=== PATIENT | female | born 1935 | race African-American/Black ===

== ENCOUNTER 2017-06-20 12:25 | Inpatient (IN) | payer MEDICARE, OTHER ==
[2017-06-20 13:10] LABS: Mean Corpuscular HGB CONC 30.6 g/dL (32.0-36.0); Mean Corpuscular Hemoglobin 25.7 pg (27.0-31.0); Mean Corpuscular Volume 83.9 fl (81.0-99.0); Mean Platelet Volume 8.8 fL (7.4-10.4); Platelet Count 203 thou/uL (130-400); RBC Distribution Width 19.7 % (11.5-14.5); Red Blood Cell (RBC) Count 3.91 mill/uL (4.20-5.40); White Blood Cell (WBC) Count 3.8 thou/uL (4.8-10.8)
[2017-06-20 13:31] LABS: Anisocytosis SLIGHT = 6-15 cells (100X) (0-5/hpf); Band 1 % (5-11); Hypochromia SLIGHT = 6-15 cells (100X) (0-5/hpf); Lymphocytes 26 % (21-51); MDiff Complete? YES; Monocytes 11 % (0-10); Neutrophil 62 % (42-75); Ovalocytes SLIGHT = 2-5 cells (100X) (0-1/hpf); PLT Morphology Comment Appears Adequate
[2017-06-20 13:32] LABS: ALT (SGPT) 8 U/L (8-55); AST (SGOT) 18 U/L (5-34); Albumin 4.1 g/dL (3.4-4.8); Alkaline Phosphatase 90 U/L (40-150); Anion Gap 14 mmol/L (10-20); BUN (Urea Nitrogen) 44 mg/dL (9.8-20.1); CK (CPK) 71 U/L (29-168); Calc. Creatinine Clearance 0 mL/min (70-130); Calcium 9.3 mg/dL (7.8-10.44); Carbon Dioxide 34 mmol/L (23-31); Chloride 98 mmol/L (98-107); Estimated GFR-MDRD 7; Globulin 3.4 g/dL (2.4-3.5); Glucose 101 mg/dL (83-110); Potassium 4.2 mmol/L (3.5-5.1); Protein, Total 7.5 g/dL (6.0-8.3); Sodium 142 mmol/L (136-145)
[2017-06-20 13:40] LABS: CKMB 0.8 ng/mL (0-6.6); Troponin I 0.092 ng/mL (< 0.028)
--- NOTE | 2017-06-20 13:54 | RAD ---
SINGLE VIEW OF THE CHEST: COMPARISON: 09/10/16. HISTORY: Chest pain. FINDINGS: A single view of the chest shows a cardiomediastinal silhouette which his upper limits of normal in s ize. There are small bilateral pleural effusions, left greater than right. An infiltrate may also b e present in the left lower lobe. Degenerative changes are seen in the spine. IMPRESSION: 1. Bilateral pleural effusions. 2. Left lower lobe infiltrate. POS: [facility]
[2017-06-20] MEDS ORDERED: Nitroglycerin 0.4 MG TAB (25 Tab Bottle) ONE (15:26)
[2017-06-20] MEDS ORDERED: Piperacillin/Tazobactam 4.5 GM in Sodium Chloride 0.9% 100 ML IVPB ONE (15:45)
[2017-06-20 15:55] LABS: Troponin I 0.081 ng/mL (< 0.028)
[2017-06-20] MEDS ORDERED: Acetaminophen 325 MG TAB PO PRN (17:08)
[2017-06-20] MEDS ORDERED: Senokot 8.6 MG TAB PO PRN (17:08)
[2017-06-20] MEDS ORDERED: Guaifenesin DM 100-10/5 ML UDCUP PO PRN (17:08)
[2017-06-20] MEDS ORDERED: cefTRIAXone\\ROCEPHIN 1 GM in Sodium Chloride 0.9% 100 ML IVPB SCH (17:15)
[2017-06-20] MEDS ORDERED: Dextrose 5% in Water 1,000 ML IV PRN (17:24)
[2017-06-20] MEDS ORDERED: HumaLOG 300 UNITS/3 ML VIAL SC PRN (17:24)
[2017-06-20] MEDS ORDERED: Dextrose 50% Abboject 50 ML SYRINGE SLOW IVP PRN (17:24)
[2017-06-20] MEDS ORDERED: Azithromycin 500 MG in Sodium Chloride 0.9% 250 ML 250 ML IVPB SCH (18:00)
--- NOTE | 2017-06-20 18:20 | CT ---
CT OF CHEST NONCONTRAST: Clinical history: Difficulty breathing, Chest pain. Clinical concern for pneumonia. Comparison: 09-10-16, CT of chest. FINDINGS: There are large bilateral pleural effusions, progressed in volume from prior exam. Adjacent consolida tion is seen bilaterally which may be on the basis of compressive atelectasis or/or adjacent areas of pneumonia. An area of reticular nodular density at the anterior left upper lobe, pleural based, is p resent, nonspecific. This could relate to an area of scar. Finding was present on a 08-27-11 CT exam. Diffuse vascular disease is present. There is extensive vascular disease re-demonstrated with mild an eurysmal dilatation of the aortic arch, grossly stable at approximately 4.5 cm. Regional soft tissues are limited in assessment without the presence of IV contrast. There is mild pericardial fluid, claudia osteal degenerative changes are present. IMPRESSION: 1. Large bilateral pleural effusions with adjacent consolidation which may related to atelectasis and /or pneumonia. 2. Extensive vascular disease and aneurysmal dilatation of the aortic arch re-demonstrated. POS: [facility]
--- NOTE | 2017-06-20 18:24 | HP ---
REASON FOR ADMISSION: Possible left lung pneumonia versus effusion. HISTORY OF PRESENTING ILLNESS: The patient gives history of having left-sided chest pain, which started around 8:30 in the morning. This was associated with shortness of breath. The chest pain was radiating to the back. This was 4-5/ 10 in intensity. The chest pain was off and on, each episode lasting 5 minutes or so. The patient states she has cough with expectoration of white sputum. No fever as such. She has had a flu shot. Her last dialysis was on Wednesday. Here in the ER, she has had a chest x-ray done, which is suspicious for possible left lower lobe pneumonia. PAST MEDICAL AND SURGICAL HISTORY: History of end-stage renal disease, on hemodialysis Wednesday, Wednesday and Wednesday; history of paroxysmal SVT; diabetes mellitus type 2; hypertension; dialysis access placement in the left upper extremity; hysterectomy; gout; dyslipidemia; prior history of PE; history of CML ; history of thoracic aneurysm; GERD and prior history of bone marrow biopsy. CURRENT MEDICATIONS: The patient is on allopurinol 300 mg every 2 days; vitamin D3 2000 units p.o. daily; Sensipar 30 mg p.o. on Wednesday, Wednesday and Wednesday; clonidine 0.1 mg p.o. twice daily; Sprycel 20 mg p.o. daily; ferric citrate 210 mg p.o. daily; glimepiride 2 mg p.o. daily; hydralazine 25 mg p.o. 3 times daily; Imdur extended release 60 mg p.o. q.a.m.; losartan 50 mg p.o. at bedtime; Megace twice daily; Toprol-XL 25 mg p.o. twice daily; Remeron 50 mg p.o. at bedtime; sevelamer 800 mg p.o. three times daily; simvastatin 40 mg p.o. at bedtime and Travatan eyedrops q.p.m. ALLERGIES: TRAMADOL, CODEINE, ASPIRIN and MORPHINE. PERSONAL HISTORY: Does not abuse alcohol or drugs. No history of smoking. She is independent with the activities of daily living. Does not abuse any assistive devices. FAMILY HISTORY: Mom at the age of 87 years from old age. Father at the age of 67 years when he got burnt accidentally. One sister is on hemodialysis as well. CODE STATUS: DNR. Power of bootmaker hand is her daughter, Ms. Vick. REVIEW OF SYSTEMS: The following complete review of systems was negative, unless otherwise mentioned in the HPI or below: Constitutional: Weight loss or gain, ability to conduct usual activities. Skin: Rash, itching. Eyes: Double vision, pain. ENT/Mouth: Nose bleeding, neck stiffness, pain, tenderness. Cardiovascular: Palpitations, dyspnea on exertion, orthopnea. Respiratory: Shortness of breath, wheezing, cough, hemoptysis, fever or night sweats. Gastrointestinal: Poor appetite, abdominal pain, heartburn, nausea, vomiting, constipation, or diarrhea. Genitourinary: Urgency, frequency, dysuria, nocturia. Musculoskeletal: Pain, swelling. Neurologic/Psychiatric: Anxiety, depression. Allergy/Immunologic: Skin rash, bleeding tendency. PHYSICAL EXAMINATION: GENERAL: The patient is an 81-year-old female who is currently not in any acute distress. VITAL SIGNS: Blood pressure 156/70, pulse 88 per minute, respiratory rate 20 per minute, temperature 98.2 degrees Fahrenheit and saturating 96% on room air. NECK: Supple. No elevated JVD. HEENT: Eyes: Extraocular muscles intact. Pupils are reacting to light. Oral cavity mucous membranes are moist. No exudates or congestion. CARDIOVASCULAR SYSTEM: S1 and S2 heard. Regular rhythm. RESPIRATORY SYSTEM: Air entry 1+ bilateral. There is decreased air entry in the left infrascapular area. ABDOMEN: Soft. Bowel sounds heard. No tenderness, rigidity or guarding. EXTREMITIES: No peripheral edema or calf tenderness. VASCULAR SYSTEM: Peripheral pulses 1+ bilateral. No ischemic ulcerations or gangrene. CENTRAL NERVOUS SYSTEM: No gross focal deficits seen. The patient is alert, awake and oriented well. PSYCHIATRIC SYSTEM: The patient's mood is euthymic. No hallucinations or delusions. LABORATORY AND X-RAY FINDINGS: White count of 3.8, hemoglobin and hematocrit 10 and 32, platelet count 203, MCV is 83 with 62% neutrophils. Electrolytes are stable. Serum bicarbonate 34, BUN 44, creatinine 7.1 and glucose 101. Liver enzymes are within normal limits. Lactic acid is 1.2, troponin I is 0.09 , CK-MB 0.8 and albumin is 4.1. Chest x-ray done shows bilateral pleural effusions. There was a suspicion for left lower lobe infiltrate. EKG done shows sinus rhythm at 89 beats per minute. There are questionable Q-waves seen in V1 and V2 and inferior wall leads. CLINICAL IMPRESSION AND PLAN: The patient will be admitted to telemetry for suspected left lower lobe infiltrate versus effusion. We will place her on Zithromax and ceftriaxone for now and I have consulted Dr. Elizabeth as well. The patient will have increased fluid removal with hemodialysis tomorrow. We will continue her allopurinol, Sensipar, Amaryl, hydralazine, Imdur, Cozaar, Toprol- XL, Remeron and Zocor as before. A CT chest without contrast will be obtained to better delineate the left lower lobe to see if this is really an infiltrate or increased effusion. The patient has had left-sided effusion from before. Code status was discussed with patient and she is a DNR. This was confirmed with her daughter, Ms. Vick as well. SARAH
[2017-06-20 20:28] VITALS: BMI 25.1
[2017-06-20] MEDS: hydrALAZINE 25 MG TAB PO SCH (20:38)
[2017-06-20] MEDS: Megestrol Acetate 40 MG TAB PO SCH (20:38)
[2017-06-20] MEDS: Simvastatin 40 MG TAB PO SCH (20:39)
[2017-06-20] MEDS: Mirtazapine 15 MG TAB PO SCH (20:39)
[2017-06-20] MEDS: Losartan 25 MG TAB PO SCH (20:39)
[2017-06-20] MEDS: Famotidine 20 MG TAB PO SCH (20:39)
[2017-06-20] MEDS: Latanoprost 0.005% Ophth Soln 2.5 ml Bottle EA EYE SCH (20:40)
[2017-06-20] MEDS: Cefepime 1 GM, Admixture Fee 1 EACH in Sterile Water 10 ML SLOW IVP SCH (21:25)
[2017-06-20] MEDS: cloNIDine 0.1 MG TAB PO SCH (22:05)
--- NOTE | 2017-06-20 22:49 | CON ---
DATE OF CONSULTATION: 06/20/2017 HISTORY OF PRESENT ILLNESS: Ms. Contreras is an 81-year-old black female with ESRD and presented with mil d shortness of breath. She was also complaining of left-sided chest pain. Chest x-ray was done in [facility] ER which showed ? of a possible left lower lobe pneumonia. Of interest, this patient denies any f ever or any overt productive cough. We are now being consulted for her maintenance hemodialysis. Of interest, this patient did receive her regular dialysis last Wednesday. REVIEW OF SYSTEMS: Positive for left-sided chest pain, no nausea, no vomiting. Positive for dry cou gh, positive for mild shortness of breath. No dysuria, no frequency, no abdominal pain, no syncopal episode, no headache, no diplopia, no gross hematuria, no dysuria, no urinary frequency. No hematoch ezia, no melena, no hematemesis, no nausea, and no vomiting. MEDICATIONS: Allopurinol 300 mg every other day, vitamin D3 of 2000 international units daily, Sensi par 30 mg Wednesday, Wednesday, Wednesday; clonidine 0.1 mg b.i.d., Sprycel 20 mg daily, Ferric citrate 210 mg daily, glimepiride 2 mg daily, hydralazine 25 mg p.o. t.i.d., Imdur 60 mg q.a.m., Losartan 50 mg at bedtime, Megace twice a day, Toprol-XL 25 mg twice a day, Remeron 50 mg at bedtime, sevelamer 800 mg t.i.d. with meals, simvastatin 40 mg at bedtime, Travatan eye drop as directed. PAST MEDICAL HISTORY: 1. Chronic myelogenous leukemia. 2. ESRD from presumed hypertensive nephropathy. 3. Hyperlipidemia. 4. Longstanding hypertension. 5. Status post pulmonary embolism. 6. Type 2 diabetes mellitus. 7. History of aortic aneurysm - patient declines any intervention. 8. Gastroesophageal reflux disease. PAST SURGICAL HISTORY: 1. Status post AV fistula placement. 2. Status post cuffed dialysis catheter placement. 3. Status post abdominal hysterectomy with salpingo-oophorectomy. 4. Status post bone marrow biopsy. 5. Status post colonoscopy. SOCIAL HISTORY: Patient lives alone, , retired from [employer], several children. No history of smoking. No alcohol intake. No IV drug abuse. Status post multiple blood transfusions. FAMILY HISTORY: Positive family history of ESRD. ALLERGIES: CODEINE, MORPHINE. TRAUMA: None. IMMUNIZATIONS: Up to date. HOSPITALIZATIONS: Please see past medical history. PHYSICAL EXAMINATION: VITAL SIGNS: Blood pressure is noted at 198/88, heart rate 83, respiratory rate 20, temperature 97.5 , pulse ox 93%. GENERAL: Awake, alert, comfortable, not in distress. SKIN: Adequate turgor. HEENT: Pinkish conjunctivae, anicteric sclerae. NECK: No neck mass, no carotid bruits, no JVD. CHEST: No deformities. LUNGS: Clear breath sounds. HEART: Normal sinus rhythm. No murmur, no gallops, or rubs. ABDOMEN: Globular, soft, nontender. No masses. EXTREMITIES: No edema, no deformities. LABORATORY DATA: On 06/20/2017, chest x-ray shows bilateral pleural effusions with left lower lobe i nfiltrate. CT scan of the chest on 06/20/2017 shows large bilateral pleural effusions with a conside ration, which may be related to atelectasis and/or pneumonia. ASSESSMENT AND PLAN: 1. Shortness of breath - multifactorial etiology. This could simply be a simple volume overload. S he does have bilateral pleural effusions. My plan is to schedule her for dialysis in the a.m. - ther e is no indication for any emergent dialysis tonight with this patient. 2. ? of pneumonia - clinically, the patient does not present someone with pneumonia. She denies any productive cough and/or any fever or chills. 3. Hypertension. We will continue current blood pressure meds. I reviewed the last KT/V with this patient and she is adequately dialyzed with the current dialysis regimen. We will continue her , Wednesday, and Wednesday dialysis.
[2017-06-21 00:08] LABS: Troponin I 0.089 ng/mL (< 0.028)
[2017-06-21 06:10] LABS: Anion Gap 15 mmol/L (10-20); BUN (Urea Nitrogen) 50 mg/dL (9.8-20.1); Calc. Creatinine Clearance 5 mL/min (70-130); Calcium 8.8 mg/dL (7.8-10.44); Carbon Dioxide 29 mmol/L (23-31); Chloride 100 mmol/L (98-107); Estimated GFR-MDRD 6; Glucose 98 mg/dL (83-110); Potassium 4.3 mmol/L (3.5-5.1); Sodium 140 mmol/L (136-145)
[2017-06-21 06:48] LABS: Band 1 % (5-11); Eosinophils 4 % (0-10); Hemoglobin 8.9 g/dL (12.0-16.0); Lymphocytes 23 % (21-51); MDiff Complete? YES; Mean Corpuscular HGB CONC 31.1 g/dL (32.0-36.0); Mean Corpuscular Hemoglobin 26.2 pg (27.0-31.0); Mean Platelet Volume 8.4 fL (7.4-10.4); Monocytes 8 % (0-10); Neutrophil 64 % (42-75); Platelet Count 176 thou/uL (130-400); RBC Distribution Width 19.6 % (11.5-14.5); Red Blood Cell (RBC) Count 3.39 mill/uL (4.20-5.40); White Blood Cell (WBC) Count 4.1 thou/uL (4.8-10.8)
--- NOTE | 2017-06-21 08:42 | PRG ---
DATE OF SERVICE: 06/21/2017 RENAL MEDICINE SUBJECTIVE: Ms. Contreras is an 81-year-old black female who was admitted for shortness of breath. She w as found to have bilateral pleural effusion. ? of pneumonia has been entertained, but clinically she does not present as pneumonia. We are being consulted for her maintenance hemodialysis. The patien quinton is currently in dialysis. I am at the bedside supervising her dialysis. PHYSICAL EXAMINATION: VITAL SIGNS: Blood pressure 159/60, heart rate 92, respiratory rate 18, pulse ox 93%. GENERAL: Awake, alert, supine, comfortable. SKIN: Adequate turgor. HEENT: Slightly pale conjunctivae, anicteric sclerae. NECK: No neck mass, no carotid bruits. No JVD. CHEST: No deformities. LUNGS: Decreased breath sounds. No wheezing. HEART: Normal sinus rhythm. No murmurs, no gallops, no rubs. ABDOMEN: Globular, soft, nontender, no masses. EXTREMITIES: No edema, no deformities. MEDICATIONS: Medications of 06/21/2017 was reviewed. LABORATORY DATA: Laboratories of 06/21/2017; white count 4.1, hemoglobin 8.9, sodium 140, potassium 4.3, chloride 100, carbon dioxide 29, BUN 50, creatinine 7.95, glucose 98, calcium 8.8, troponin I 0. 089. ASSESSMENT AND PLAN: 1. Shortness of breath, multifactorial etiology. This could be from mild volume overload. She does have chronic pleural effusion. We were maxing out fluid removal with dialysis. She could also have an underlying pneumonia. Empiric IV antibiotics have been started with this patient. 2. End-stage renal disease, stable. Continuing Wednesday, Wednesday, and Wednesday. Attempt to remove 2. 5 liters of fluid as tolerated. 3. Anemia. Start Epogen 7500 units subcutaneously every week. 4. Recheck basic metabolic panel and CBC in a.m.
[2017-06-21] MEDS ORDERED: (Ferric Citrate [Auryxia] 210 MG) PO SCH (09:00)
[2017-06-21] MEDS ORDERED: Cefepime 1 GM in Sodium Chloride 0.9% 100 ML IVPB SCH (09:00)
[2017-06-21] MEDS: hydrALAZINE 25 MG TAB PO SCH (10:06)
[2017-06-21] MEDS: Sevelamer Carbonate 800 MG TAB PO SCH ×3 (10:06→17:31)
--- NOTE | 2017-06-21 12:02 | PDOC.PN ---
- Subjective Encounter Start Date: 06/21/17 Encounter Start Time: 10:00 Subjective: is getting HD now, no sob -: no fever - Objective MAR Reviewed: Yes Vital Signs & Weight: Vital Signs (12 hours) Temp Pulse Resp BP Pulse Ox 06/21/17 10:06 92 06/21/17 07:55 92 18 159/60 H 06/21/17 03:10 98.3 F 81 16 182/73 H 93 L Weight Weight 137 lb 14.4 oz I&O: 06/20/17 06/21/17 06/22/17 06:59 06:59 06:59 Intake Total 350 Balance 350 Result Diagrams: 06/21/17 04:04 06/21/17 04:04 Additional Labs: Accuchecks 06/21/17 06/21/17 06/20/17 05:37 01:49 20:20 POC Glucose 92 136 H 69 L Phys Exam - Physical Examination HEENT: PERRLA, moist MMs Neck: no JVD, supple Respiratory: no wheezing, no rales Cardiovascular: RRR, no significant murmur Gastrointestinal: soft, non-tender, positive bowel sounds Musculoskeletal: no edema, pulses present Neurological: non-focal, moves all 4 limbs Psychiatric: A&O x 3 Dx/Plan (1) PNA (pneumonia) Code(s): J18.9 - PNEUMONIA, UNSPECIFIED ORGANISM Status: Suspected Qualifiers: Pneumonia type: due to unspecified organism Laterality: left Lung location: lower lobe of lung Qualified Code(s): J18.1 - Lobar pneumonia, unspecified organism (2) Pleural effusion Code(s): J90 - PLEURAL EFFUSION, NOT ELSEWHERE CLASSIFIED Status: Chronic (3) Anemia in chronic kidney disease Code(s): N18.9 - CHRONIC KIDNEY DISEASE, UNSPECIFIED; D63.1 - ANEMIA IN CHRONIC KIDNEY DISEASE Status: Chronic Qualifiers: Chronic kidney disease stage: on chronic dialysis Qualified Code(s): N18.6 - End stage renal disease; D63.1 - Anemia in chronic kidney disease; D63.1 - Anemia in chronic kidney disease; Z99.2 - Dependence on renal dialysis; Z99.2 - Dependence on renal dialysis; Z99.2 - Dependence on renal dialysis; Z99.2 - Dependence on renal dialysis (4) CML (chronic myelocytic leukemia) Code(s): C92.10 - CHRONIC MYELOID LEUK, BCR/ABL-POSITIVE, NOT ACHIEVE REMIS Status: Chronic (5) Diabetes mellitus type 2 in nonobese Code(s): E11.9 - TYPE 2 DIABETES MELLITUS WITHOUT COMPLICATIONS Status: Chronic (6) ESRD (end stage renal disease) on dialysis Code(s): N18.6 - END STAGE RENAL DISEASE; Z99.2 - DEPENDENCE ON RENAL DIALYSIS Status: Chronic (7) Hypertension Code(s): I10 - ESSENTIAL (PRIMARY) HYPERTENSION Status: Chronic Qualifiers: Hypertension type: essential hypertension - Plan hemostable -: for fluid removal today with HD -: repeat cxr in 24hrs to see for left effusion -: empiric antibiotics, no fever/left shift/has cough with clear sputum? -: may dc antibiotics if f/u cxr is clearing up, viral pcr is -ve * . Review of Systems - Medications/Allergies Allergies/Adverse Reactions: Allergies Allergy/AdvReac Type Severity Reaction Status Date / Time tramadol Allergy Severe Verified 06/20/17 23:15 codeine Allergy Intermediate Hives Verified 06/20/17 23:15 aspirin Allergy Verified 06/20/17 23:15 morphine AdvReac Severe Emesis Verified 06/20/17 23:15 Medications: Current Medications Acetaminophen (Tylenol) 650 mg PO Q4H PRN PRN Reason: Headache/Fever or Pain Allopurinol (Zyloprim) 300 mg PO Q2D@0900 [facility] Cinacalcet (Sensipar) 30 mg PO MWF [facility] Clonidine (Catapres) 0.1 mg PO BID [facility] Last Admin: 06/20/17 22:05 Dose: Not Given Dextrose/Water (Dextrose 50%) 25 gm SLOW IVP PRN PRN PRN Reason: Hypoglycemia Enoxaparin Sodium (Lovenox) 30 mg SC 0900 [facility] Epoetin Liam (Procrit) 7,500 units SC Q7D@1000 [facility] Famotidine (Pepcid) 20 mg PO QPM [facility] Last Admin: 06/20/17 20:39 Dose: 20 mg Glimepiride (Amaryl) 2 mg PO DAILY [facility] Glucagon (Glucagon) 1 mg IM PRN PRN PRN Reason: Hypoglycemia Guaifenesin/Dextromethorphan (Robitussin Dm) 15 ml PO Q4H PRN PRN Reason: Cough Hydralazine HCl (Apresoline) 25 mg PO TID [facility] Last Admin: 06/21/17 10:06 Dose: Not Given Dextrose/Water (D5w) 1,000 mls @ 0 mls/hr IV .Q0M PRN; As Directed PRN Reason: Hypoglycemia Levofloxacin 250 mg/ Device 50 mls @ 100 mls/hr IVPB Q24HR [facility] Last Admin: 06/20/17 20:39 Dose: 50 mls Cefepime HCl 1 gm/Miscellaneous Medication 1 each/ Sterile Water 10 mls @ 120 mls/hr SLOW IVP 2000 [facility] Last Admin: 06/20/17 21:25 Dose: 10 mls Insulin Human Lispro (Humalog) 0 units SC .MILD SLIDING SCALE PRN PRN Reason: Mild Correctional Scale Isosorbide Mononitrate (Imdur) 60 mg PO QAM [facility] Latanoprost (Xalatan 0.005% Ophth Soln) 1 drop EA EYE QPM [facility] Last Admin: 06/20/17 20:40 Dose: 1 drop Lidocaine/Prilocaine (Emla 2.5%) 0 gm TOP MWF [facility] Losartan Potassium (Cozaar) 50 mg PO [facility] Last Admin: 06/20/17 20:39 Dose: 50 mg Megestrol Acetate (Megace) 200 mg PO BID [facility] Last Admin: 06/20/17 20:38 Dose: 200 mg Metoprolol Succinate (Toprol Xl) 25 mg PO BID [facility] Last Admin: 06/20/17 20:39 Dose: 25 mg Mirtazapine (Remeron) 15 mg PO [facility] Last Admin: 06/20/17 20:39 Dose: 15 mg (Dasatinib [Sprycel] (20 Mg)) 20 mg PO DAILY [facility] (Ferric Citrate [ (Auryxia] 210 Mg)) 210 mg PO DAILY [facility] Senna (Senokot) 2 tab PO HSPRN PRN PRN Reason: Constipation Sevelamer Carbonate (Renvela) 800 mg PO TID[facility] Last Admin: 06/21/17 10:06 Dose: Not Given Simvastatin (Zocor) 40 mg PO [facility] Last Admin: 06/20/17 20:39 Dose: 40 mg
[2017-06-21] MEDS: Epoetin (ESRD) 20,000 UNITS/ML SC SCH ×2 (12:30→14:28)
[2017-06-21] MEDS: Enoxaparin Sodium 30 MG/0.3 ML SYRINGE SC SCH (12:31)
[2017-06-21] MEDS: cloNIDine 0.1 MG TAB PO SCH ×2 (12:32→20:49)
[2017-06-21] MEDS: Cinacalcet HCl 30 MG TAB PO SCH (12:32)
[2017-06-21] MEDS: Glimepiride 2 MG TAB PO SCH (12:32)
[2017-06-21] MEDS: Megestrol Acetate 40 MG TAB PO SCH ×2 (14:23→20:48)
[2017-06-21] MEDS: Lidocaine-Prilocaine 2.5% Cream 5 GM TUBE TOP SCH (14:29)
[2017-06-21] MEDS: DASATINIB 20 MG PO SCH (15:52)
[2017-06-21] MEDS: Cefepime 1 GM, Admixture Fee 1 EACH in Sterile Water 10 ML SLOW IVP SCH (20:48)
[2017-06-21] MEDS: Losartan 25 MG TAB PO SCH (20:49)
[2017-06-21] MEDS: Simvastatin 40 MG TAB PO SCH (20:50)
[2017-06-21] MEDS: Mirtazapine 15 MG TAB PO SCH (20:50)
[2017-06-21] MEDS: Latanoprost 0.005% Ophth Soln 2.5 ml Bottle EA EYE SCH (20:50)
[2017-06-21] MEDS: Famotidine 20 MG TAB PO SCH (20:50)
[2017-06-22 05:18] LABS: #Eosinphils 0.1 thou/uL (0.0-0.7); #Lymphocytes 1.5 thou/uL (1.20-3.40); #Monocytes 0.5 thou/uL (0.11-0.59); #Neutrophils 1.6 thou/uL (1.40-6.50); %Basophils 0.2 % (0.0-1.0); %Eosinophils 2.4 % (0.0-10.0); %Monocytes 14.4 % (0.0-10.0); Hemoglobin 9.1 g/dL (12.0-16.0); Mean Corpuscular HGB CONC 29.8 g/dL (32.0-36.0); Mean Corpuscular Hemoglobin 24.6 pg (27.0-31.0); Mean Corpuscular Volume 82.7 fl (81.0-99.0); Mean Platelet Volume 8.9 fL (7.4-10.4); Platelet Count 150 thou/uL (130-400); RBC Distribution Width 19.2 % (11.5-14.5); Red Blood Cell (RBC) Count 3.72 mill/uL (4.20-5.40); White Blood Cell (WBC) Count 3.7 thou/uL (4.8-10.8)
[2017-06-22 06:20] LABS: Anion Gap 14 mmol/L (10-20); BUN (Urea Nitrogen) 29 mg/dL (9.8-20.1); Calc. Creatinine Clearance 8 mL/min (70-130); Calcium 8.5 mg/dL (7.8-10.44); Carbon Dioxide 27 mmol/L (23-31); Chloride 101 mmol/L (98-107); Estimated GFR-MDRD 9; Glucose 73 mg/dL (83-110); Potassium 3.6 mmol/L (3.5-5.1); Sodium 138 mmol/L (136-145)
[2017-06-22] MEDS: Sevelamer Carbonate 800 MG TAB PO SCH ×3 (08:06→17:23)
[2017-06-22] MEDS: Allopurinol 300 MG TAB PO SCH (08:06)
[2017-06-22] MEDS: cloNIDine 0.1 MG TAB PO SCH ×2 (08:06→21:26)
[2017-06-22] MEDS: Enoxaparin Sodium 30 MG/0.3 ML SYRINGE SC SCH (08:06)
[2017-06-22] MEDS: Glimepiride 2 MG TAB PO SCH (08:06)
[2017-06-22] MEDS: hydrALAZINE 25 MG TAB PO SCH ×4 (08:07→21:29)
[2017-06-22] MEDS: Megestrol Acetate 40 MG TAB PO SCH ×2 (08:11→21:27)
[2017-06-22] MEDS: DASATINIB 20 MG PO SCH (08:11)
--- NOTE | 2017-06-22 15:09 | PDOC.PN ---
- Subjective Encounter Start Date: 06/22/17 Encounter Start Time: 15:10 Patient is seen today alert and oriented. No other concern snoted. She is scheduled for Dialysis tomorrow, still SOB, pt had low BG today. - Objective MAR Reviewed: Yes Vital Signs & Weight: Vital Signs (12 hours) Temp Pulse Resp BP BP BP Pulse Ox 06/22/17 14:24 82 102/50 L 06/22/17 11:42 97 F L 77 16 145/65 H 94 L 06/22/17 08:07 79 06/22/17 08:06 144/60 H 06/22/17 07:56 98.2 F 79 16 144/60 H 97 06/22/17 04:00 98.4 F 79 17 124/58 L 93 L Weight Weight 139 lb I&O: 06/21/17 06/22/17 06/23/17 06:59 06:59 06:59 Intake Total 350 798 Output Total 2000 Balance 350 -1202 Result Diagrams: 06/22/17 04:51 06/22/17 04:51 Additional Labs: Accuchecks 06/22/17 06/22/17 06/21/17 12:13 06:05 22:22 POC Glucose 71 70 161 H 06/21/17 06/21/17 19:59 16:33 POC Glucose 52 L* 192 H Phys Exam - Physical Examination HEENT: PERRLA, moist MMs Neck: no nodes, no JVD Respiratory: wheezing present (crackles bilaterally noted.) Cardiovascular: RRR, no significant murmur, no rub Gastrointestinal: soft, non-tender Musculoskeletal: no edema, pulses present Neurological: non-focal, normal sensation Dx/Plan (1) PNA (pneumonia) Code(s): J18.9 - PNEUMONIA, UNSPECIFIED ORGANISM Status: Suspected Qualifiers: Pneumonia type: due to unspecified organism Laterality: left Lung location: lower lobe of lung Qualified Code(s): J18.1 - Lobar pneumonia, unspecified organism Comment: will repeat chest xray, pt on augmentibn, Will continue to monitor. nebs prn. (2) Dyspnea Code(s): R06.00 - DYSPNEA, UNSPECIFIED Status: Acute Comment: stbale now, off of oxygen,. (3) Generalized weakness Code(s): R53.1 - WEAKNESS Status: Acute Comment: persistnat weakness from ESRD. may need evaluation for SNF. (4) Hypokalemia Code(s): E87.6 - HYPOKALEMIA Status: Acute (5) Troponin level elevated Code(s): R74.8 - ABNORMAL LEVELS OF OTHER SERUM ENZYMES Status: Acute Comment: [place] Chronic due to ESRD (6) Anemia in chronic kidney disease Code(s): N18.9 - CHRONIC KIDNEY DISEASE, UNSPECIFIED; D63.1 - ANEMIA IN CHRONIC KIDNEY DISEASE Status: Chronic Qualifiers: Chronic kidney disease stage: on chronic dialysis Qualified Code(s): N18.6 - End stage renal disease; D63.1 - Anemia in chronic kidney disease; D63.1 - Anemia in chronic kidney disease; Z99.2 - Dependence on renal dialysis; Z99.2 - Dependence on renal dialysis; Z99.2 - Dependence on renal dialysis; Z99.2 - Dependence on renal dialysis Comment: stbale, on Epocrit. (7) Diabetes mellitus type 2 in nonobese Code(s): E11.9 - TYPE 2 DIABETES MELLITUS WITHOUT COMPLICATIONS Status: Chronic Comment: Poorly controlled, Drop in BG, will reduce GLimepride to 1 mg po daily. (8) ESRD (end stage renal disease) on dialysis Code(s): N18.6 - END STAGE RENAL DISEASE; Z99.2 - DEPENDENCE ON RENAL DIALYSIS Status: Chronic (9) Pleural effusion Code(s): J90 - PLEURAL EFFUSION, NOT ELSEWHERE CLASSIFIED Status: Chronic Comment: Bilateral effsuiomn improving with Dialysis. - Plan cont current plan of care, continue antibiotics, PT/OT, hospital social worker, respiratory therapy, incentive spirometry, out of bed/ambulate, DVT proph w/ lovenox * . - Discharge Day Encounter end time: 14:40 Review of Systems - Review of Systems Eyes: negative: Pain, Vision Change, Conjunctivae Inflammation, Eyelid Inflammation, Redness, Other ENT: negative: Ear Pain, Ear Discharge, Nose Pain, Nose Discharge, Nose Congestion, Mouth Pain, Mouth Swelling, Throat Pain, Throat Swelling, Other Respiratory: Shortness of Breath, SOB with Excertion, Wheezing Cardiovascular: negative: chest pain, palpitations, orthopnea, paroxysmal nocturnal dyspnea, edema, light headedness, other Gastrointestinal: negative: Nausea, Vomiting, Abdominal Pain, Diarrhea, Constipation, Melena, Hematochezia, Other Genitourinary: negative: Dysuria, Frequency, Incontinence, Hematuria, Retention , Other Musculoskeletal: negative: Neck Pain, Shoulder Pain, Arm Pain, Back Pain, Hand Pain, Leg Pain, Foot Pain, Other Skin: negative: Rash, Lesions, Benji, Bruising, Other - Medications/Allergies Allergies/Adverse Reactions: Allergies Allergy/AdvReac Type Severity Reaction Status Date / Time tramadol Allergy Severe Verified 06/20/17 23:15 codeine Allergy Intermediate Hives Verified 06/20/17 23:15 aspirin Allergy Verified 06/20/17 23:15 morphine AdvReac Severe Emesis Verified 06/20/17 23:15 Medications: Current Medications Acetaminophen (Tylenol) 650 mg PO Q4H PRN PRN Reason: Headache/Fever or Pain Last Admin: 06/21/17 16:34 Dose: 650 mg Allopurinol (Zyloprim) 300 mg PO Q2D@0900 [facility] Last Admin: 06/22/17 08:06 Dose: 300 mg Cinacalcet (Sensipar) 30 mg PO MWF [facility] Last Admin: 06/21/17 12:32 Dose: 30 mg Clonidine (Catapres) 0.1 mg PO BID [facility] Last Admin: 06/22/17 08:06 Dose: 0.1 mg Dextrose/Water (Dextrose 50%) 25 gm SLOW IVP PRN PRN PRN Reason: Hypoglycemia Enoxaparin Sodium (Lovenox) 30 mg SC 0900 [facility] Last Admin: 06/22/17 08:06 Dose: 30 mg Epoetin Liam (Procrit) 7,500 units SC Q7D@1000 [facility] Last Admin: 06/21/17 14:28 Dose: 7,500 units Famotidine (Pepcid) 20 mg PO QPM [facility] Last Admin: 06/21/17 20:50 Dose: 20 mg Glimepiride (Amaryl) 1 mg PO QAM-[facility] Glucagon (Glucagon) 1 mg IM PRN PRN PRN Reason: Hypoglycemia Guaifenesin/Dextromethorphan (Robitussin Dm) 15 ml PO Q4H PRN PRN Reason: Cough Hydralazine HCl (Apresoline) 25 mg PO TID [facility] Last Admin: 06/22/17 14:24 Dose: Not Given Dextrose/Water (D5w) 1,000 mls @ 0 mls/hr IV .Q0M PRN; As Directed PRN Reason: Hypoglycemia Levofloxacin 250 mg/ Device 50 mls @ 100 mls/hr IVPB Q24HR COUNT [facility]CLUDES [facility] Last Admin: 06/21/17 17:30 Dose: 50 mls Cefepime HCl 1 gm/Miscellaneous Medication 1 each/ Sterile Water 10 mls @ 120 mls/hr SLOW IVP 2000 [facility] Last Admin: 06/21/17 20:48 Dose: 10 mls Insulin Human Lispro (Humalog) 0 units SC .MILD SLIDING SCALE PRN PRN Reason: Mild Correctional Scale Last Admin: 06/21/17 17:31 Dose: 2 unit Isosorbide Mononitrate (Imdur) 60 mg PO QAM [facility] Last Admin: 06/22/17 08:10 Dose: 60 mg Latanoprost (Xalatan 0.005% [facility]) 1 drop EA EYE QPM COUNT [facility]CLUDES [facility] Last Admin: 06/21/17 20:50 Dose: 1 drop Lidocaine/Prilocaine (Emla 2.5%) 0 gm TOP MWF COUNT [facility]CLUD[facility] Last Admin: 06/21/17 14:29 Dose: Not Given Losartan Potassium (Cozaar) 50 mg PO [facility] Last Admin: 06/21/17 20:49 Dose: 50 mg Megestrol Acetate (Megace) 200 mg PO BID [facility] Last Admin: 06/22/17 08:11 Dose: 200 mg Metoprolol Succinate (Toprol Xl) 25 mg PO BID [facility] Last Admin: 06/22/17 08:06 Dose: 25 mg Mirtazapine (Remeron) 15 mg PO [facility] Last Admin: 06/21/17 20:50 Dose: 15 mg (Dasatinib [Sprycel] (20 Mg)) 20 mg PO DAILY [facility] Last Admin: 06/22/17 08:11 Dose: 20 mg (Ferric Citrate [ (Auryxia] 210 Mg)) 210 mg PO DAILY COUNT [facility]CLUD[facility] Senna (Senokot) 2 tab PO HSPRN PRN PRN Reason: Constipation Sevelamer Carbonate (Renvela) 800 mg PO TID-[facility] Last Admin: 06/22/17 11:44 Dose: 800 mg Simvastatin (Zocor) 40 mg PO [facility] Last Admin: 06/21/17 20:50 Dose: 40 mg Sodium Chloride (Flush - Normal Saline) 10 ml IVF Q12HR [facility] Sodium Chloride (Flush - Normal Saline) 10 ml IVF PRN PRN PRN Reason: Saline Flush
--- NOTE | 2017-06-22 15:51 | PQF ---
DATE: 06-22-17 ATTN: DR. NIKOLE BANUELOS Please exercise your independent, professional judgment in responding to the clarification form. Clinical indicators are provided on the bottom of this form for your review Please check appropriate box(s): [ ] Aspiration Pneumonia [ x ] Empirically treating Gram Negative Pneumonia [ ] Other diagnosis [ ] Unable to determine In addition, please specify: Present on Admission (POA): [x ] Yes [ ] No [ ] Unable to determine For continuity of documentation, please document condition throughout progress notes and discharge summary. Thank You. CLINICAL INDICATORS - SIGNS / SYMPTOMS / LABS ER DX: CP, INDETERMINATE TROPONIN, PNEUMONIA H&P: PT STATES SHE HAS COUGH WITH EXPECTORATION OF WHITE SPUTUM. THE PATIENT WILL BE ADMITTED TO TELEMETRY FOR SUSPECTED LET LOWER INFILTRATE VS EFFUSION. PN 06-21-17: SUSPECTED PNEUMONIA 06-20-17: LEVAQUIN, MAXIPIME RISK FACTORS: H&P: PT STATES SHE HAS COUGH WITH EXPECTORATION OF WHITE SPUTUM. THE PATIENT WILL BE ADMITTED TO TELEMETRY FOR SUSPECTED LET LOWER INFILTRATE VS EFFUSION. H&P: HX OF CHRONIC MYELOCYTIC LEUKEMIA TREATMENTS: 06-20-17: LEVAQUIN, MAXIPIME SERIAL CXR'S (This form is maintained as a part of the permanent medical record) 2015 [employer]. All Rights Reserved CIERRA [email or web address] Office: [phone] SARAH
--- NOTE | 2017-06-22 16:12 | RAD ---
AP VIEW CHEST: Date: 06/22/17 INDICATION: Shortness of breath. COMPARISON: Prior exam dated 06/20/17. FINDINGS: Moderate left and small right pleural effusions are present. There is bibasilar atelectasis. Prominen t vascular calcification involving the thoracic aorta is similar. Mild pulmonary vascular congestion remains. No pneumothorax is evident. Osseous structures are unchanged. IMPRESSION: Largely stable examination of the chest when compared to prior dated 06/20/17. POS: [facility]
[2017-06-22] MEDS: Famotidine 20 MG TAB PO SCH (21:27)
[2017-06-22] MEDS: Cefepime 1 GM, Admixture Fee 1 EACH in Sterile Water 10 ML SLOW IVP SCH (21:28)
[2017-06-22] MEDS: Simvastatin 40 MG TAB PO SCH (21:28)
[2017-06-22] MEDS: Mirtazapine 15 MG TAB PO SCH (21:29)
[2017-06-22] MEDS: Latanoprost 0.005% Ophth Soln 2.5 ml Bottle EA EYE SCH (21:29)
[2017-06-22] MEDS: Losartan 25 MG TAB PO SCH (21:30)
[2017-06-23] MEDS ORDERED: Glimepiride 1 MG TAB PO SCH (08:00)
--- NOTE | 2017-06-23 09:14 | PRG ---
DATE OF SERVICE: 06/23/2017 SUBJECTIVE: Ms. Contreras is an 81-year-old black female with ESRD and on maintenance hemodialysis. She was admitted for shortness of breath. The feeling is that she may have a combined pneumonia and CHF. She is currently at dialysis and I am supervising her dialysis. I am at her bedside. We are maxin g out fluid removal with this patient. In addition, this patient has been empirically treated with a ntibiotics. PHYSICAL EXAMINATION: VITAL SIGNS: Blood pressure 160/67, heart rate 76, respiratory rate 16, temperature 97.3, pulse ox 9 4%. GENERAL: Awake, alert, comfortable, not in distress. SKIN: Adequate turgor. HEENT: Slightly pale conjunctivae, anicteric sclerae. NECK: No neck mass, no carotid bruits, no JVD. CHEST: No deformities. LUNGS: Decreased breath sounds. HEART: Normal sinus rhythm. No murmur, no gallops, no rubs. ABDOMEN: Globular, soft, nontender, no masses. EXTREMITIES: No edema, no deformities. MEDICATIONS: 06/23/2017 - Reviewed . LABORATORY: 06/22/2017 - White count 3.7, hemoglobin 9.1, sodium 138, potassium 3.6, chloride 101, carbon dioxide 27, BUN 29, creatinine 5.58, calcium 8.5. 06/23/2017 - Blood sugar is 254. ASSESSMENT AND PLAN: 1. Hypoglycemia clinically improved with breakfast. 2. End-stage renal disease, stable. Continue current maintenance hemodialysis. She is tolerating current dialysis regimen. Again, fluid removal as tolerated. 3. Anemia, continuing weekly Epogen. 4. Pneumonia, currently the patient is on empiric antibiotics, currently on Levaquin.
[2017-06-23] MEDS: Sevelamer Carbonate 800 MG TAB PO SCH ×3 (11:11→18:09)
[2017-06-23] MEDS: hydrALAZINE 25 MG TAB PO SCH ×3 (11:11→21:24)
[2017-06-23] MEDS: Cinacalcet HCl 30 MG TAB PO SCH (12:05)
[2017-06-23] MEDS: DASATINIB 20 MG PO SCH (12:06)
[2017-06-23] MEDS: Lidocaine-Prilocaine 2.5% Cream 5 GM TUBE TOP SCH (12:13)
[2017-06-23] MEDS: Megestrol Acetate 40 MG TAB PO SCH ×2 (12:14→21:25)
[2017-06-23] MEDS: cloNIDine 0.1 MG TAB PO SCH ×2 (12:14→21:22)
[2017-06-23] MEDS: Enoxaparin Sodium 30 MG/0.3 ML SYRINGE SC SCH (12:14)
--- NOTE | 2017-06-23 14:05 | PDOC.PN ---
- Subjective Encounter Start Date: 06/23/17 Encounter Start Time: 11:30 Patient is seen today, Alert but not oriented to time and place, She had episode of arrthythmi, initially was irregular and was like Afib, with VR of 120 , pt also had hypoglycemia this morning. - Objective MAR Reviewed: Yes Vital Signs & Weight: Vital Signs (12 hours) Temp Pulse Resp BP BP BP Pulse Ox 06/23/17 12:14 149/66 H 06/23/17 11:54 98.9 F 103 H 16 149/66 H 93 L 06/23/17 11:11 76 06/23/17 07:06 97.3 F L 76 16 94 L 06/23/17 07:02 97.3 F L 76 16 160/67 H 94 L 06/23/17 03:44 98.6 F 79 12 164/72 H 93 L Weight Weight 131 lb 12.8 oz I&O: 06/22/17 06/23/17 06/24/17 06:59 06:59 06:59 Intake Total 798 360 Output Total 2000 0 Balance -1202 360 Result Diagrams: 06/22/17 04:51 06/22/17 04:51 Additional Labs: Accuchecks 06/23/17 06/23/17 06/23/17 11:34 10:48 09:59 POC Glucose 69 L 86 84 06/23/17 06/23/17 06/22/17 06:34 05:59 21:03 POC Glucose 87 54 L* 94 06/22/17 18:43 POC Glucose 99 Radiology Reviewed by me: Yes EKG Reviewed by me: Yes (Sinus arrthymia, ) Phys Exam - Physical Examination HEENT: PERRLA, moist MMs Neck: no nodes, no JVD Respiratory: no wheezing, no rhonchi Cardiovascular: RRR, no significant murmur Musculoskeletal: no edema, pulses present Neurological: non-focal, normal sensation Lymphatic: no nodes Psychiatric: normal affect, A&O x 3 Dx/Plan (1) PNA (pneumonia) Code(s): J18.9 - PNEUMONIA, UNSPECIFIED ORGANISM Status: Suspected Qualifiers: Pneumonia type: due to unspecified organism Laterality: left Lung location: lower lobe of lung Qualified Code(s): J18.1 - Lobar pneumonia, unspecified organism Comment: Chest xray showed bibasilar fluid but no infiltrate, will d/c Abx, Will continue to monitor. nebs prn. (2) Dyspnea Code(s): R06.00 - DYSPNEA, UNSPECIFIED Status: Acute Comment: stserjioe now, off of oxygen,. (3) Generalized weakness Code(s): R53.1 - WEAKNESS Status: Acute Comment: persistnat weakness from ESRD. may need evaluation for SNF. (4) Hypokalemia Code(s): E87.6 - HYPOKALEMIA Status: Acute (5) Troponin level elevated Code(s): R74.8 - ABNORMAL LEVELS OF OTHER SERUM ENZYMES Status: Acute Comment: Lik[place] Chronic due to ESRD (6) Anemia in chronic kidney disease Code(s): N18.9 - CHRONIC KIDNEY DISEASE, UNSPECIFIED; D63.1 - ANEMIA IN CHRONIC KIDNEY DISEASE Status: Chronic Qualifiers: Chronic kidney disease stage: on chronic dialysis Qualified Code(s): N18.6 - End stage renal disease; D63.1 - Anemia in chronic kidney disease; D63.1 - Anemia in chronic kidney disease; Z99.2 - Dependence on renal dialysis; Z99.2 - Dependence on renal dialysis; Z99.2 - Dependence on renal dialysis; Z99.2 - Dependence on renal dialysis Comment: stsusana, on Epocrit. (7) Diabetes mellitus type 2 in nonobese Code(s): E11.9 - TYPE 2 DIABETES MELLITUS WITHOUT COMPLICATIONS Status: Chronic Comment: Poorly controlled, Drop in BG further, will d/c GLimepride. Will need to keep on SSI. (8) ESRD (end stage renal disease) on dialysis Code(s): N18.6 - END STAGE RENAL DISEASE; Z99.2 - DEPENDENCE ON RENAL DIALYSIS Status: Chronic Comment: Continue Nephrology recommedations. (9) Pleural effusion Code(s): J90 - PLEURAL EFFUSION, NOT ELSEWHERE CLASSIFIED Status: Chronic Comment: Bilateral effsuiomn improving with Dialysis. - Plan cont current plan of care, PT/OT, social media strategist, respiratory therapy, incentive spirometry, DVT proph w/lovenox * . - Discharge Day Encounter end time: 12:15 Review of Systems - Review of Systems Constitutional: weakness, malaise. negative: fever, chills, sweats, other Eyes: negative: Pain, Vision Change, Conjunctivae Inflammation, Eyelid Inflammation, Redness, Other ENT: negative: Ear Pain, Ear Discharge, Nose Pain, Nose Discharge, Nose Congestion, Mouth Pain, Mouth Swelling, Throat Pain, Throat Swelling, Other Respiratory: negative: Cough, Dry, Shortness of Breath, Hemoptysis, SOB with Excertion, Pleuritic Pain, Sputum, Wheezing Cardiovascular: negative: chest pain, palpitations, orthopnea, paroxysmal nocturnal dyspnea, edema, light headedness, other Gastrointestinal: negative: Nausea, Vomiting, Abdominal Pain, Diarrhea, Constipation, Melena, Hematochezia, Other Genitourinary: negative: Dysuria, Frequency, Incontinence, Hematuria, Retention , Other Musculoskeletal: negative: Neck Pain, Shoulder Pain, Arm Pain, Back Pain, Hand Pain, Leg Pain, Foot Pain, Other Neurological: Weakness, Confusion - Medications/Allergies Allergies/Adverse Reactions: Allergies Allergy/AdvReac Type Severity Reaction Status Date / Time tramadol Allergy Severe Verified 06/20/17 23:15 codeine Allergy Intermediate Hives Verified 06/20/17 23:15 aspirin Allergy Verified 06/20/17 23:15 morphine AdvReac Severe Emesis Verified 06/20/17 23:15 Medications: Current Medications Acetaminophen (Tylenol) 650 mg PO Q4H PRN PRN Reason: Headache/Fever or Pain Last Admin: 06/21/17 16:34 Dose: 650 mg Allopurinol (Zyloprim) 300 mg PO Q2D@0900 [facility] Last Admin: 06/22/17 08:06 Dose: 300 mg Cinacalcet (Sensipar) 30 mg PO MWF [facility] Last Admin: 06/23/17 12:05 Dose: 30 mg Clonidine (Catapres) 0.1 mg PO BID [facility] Last Admin: 06/23/17 12:14 Dose: Not Given Dextrose/Water (Dextrose 50%) 25 gm SLOW IVP PRN PRN PRN Reason: Hypoglycemia Enoxaparin Sodium (Lovenox) 30 mg SC 0900 [facility] Last Admin: 06/23/17 12:14 Dose: 30 mg Epoetin Liam (Procrit) 7,500 units SC Q7D@1000 [facility] Last Admin: 06/21/17 14:28 Dose: 7,500 units Famotidine (Pepcid) 20 mg PO QPM [facility] Last Admin: 06/22/17 21:27 Dose: 20 mg Glucagon (Glucagon) 1 mg IM PRN PRN PRN Reason: Hypoglycemia Guaifenesin/Dextromethorphan (Robitussin Dm) 15 ml PO Q4H PRN PRN Reason: Cough Hydralazine HCl (Apresoline) 25 mg PO TID [facility] Last Admin: 06/23/17 11:11 Dose: Not Given Dextrose/Water (D5w) 1,000 mls @ 0 mls/hr IV .Q0M PRN; As Directed PRN Reason: Hypoglycemia Cefepime HCl 1 gm/Miscellaneous Medication 1 each/ Sterile Water 10 mls @ 120 mls/hr SLOW IVP 2000 [facility] Last Admin: 06/22/17 21:28 Dose: 10 mls Insulin Human Lispro (Humalog) 0 units SC .MILD SLIDING SCALE PRN PRN Reason: Mild Correctional Scale Last Admin: 06/21/17 17:31 Dose: 2 unit Isosorbide Mononitrate (Imdur) 60 mg PO QAM [facility] Last Admin: 06/23/17 12:05 Dose: 60 mg Latanoprost (Xalatan 0.005% [facility]) 1 drop EA EYE QPM [facility] Last Admin: 06/22/17 21:29 Dose: 1 drop Lidocaine/Prilocaine (Emla 2.5%) 0 gm TOP MWF [facility] Last Admin: 06/23/17 12:13 Dose: Not Given Losartan Potassium (Cozaar) 50 mg PO [facility] Last Admin: 06/22/17 21:30 Dose: 50 mg Megestrol Acetate (Megace) 200 mg PO BID [facility] Last Admin: 06/23/17 12:14 Dose: Not Given Metoprolol Succinate (Toprol Xl) 25 mg PO BID [facility] Last Admin: 06/23/17 12:05 Dose: 25 mg Mirtazapine (Remeron) 15 mg PO HS [facility] Last Admin: 06/22/17 21:29 Dose: 15 mg (Dasatinib [Sprycel] (20 Mg)) 20 mg PO DAILY [facility] Last Admin: 06/23/17 12:06 Dose: 20 mg (Ferric Citrate [ (Auryxia] 210 Mg)) 210 mg PO DAILY [facility] Senna (Senokot) 2 tab PO HSPRN PRN PRN Reason: Constipation Sevelamer Carbonate (Renvela) 800 mg PO TID-[facility] Last Admin: 06/23/17 12:45 Dose: 800 mg Simvastatin (Zocor) 40 mg PO HS [facility] Last Admin: 06/22/17 21:28 Dose: 40 mg Sodium Chloride (Flush - Normal Saline) 10 ml IVF Q12HR [facility] Last Admin: 06/23/17 12:15 Dose: 10 ml Sodium Chloride (Flush - Normal Saline) 10 ml IVF PRN PRN PRN Reason: Saline Flush
--- NOTE | 2017-06-23 15:48 | EKG ---
Test Reason : Blood Pressure : / mmHG Vent. Rate : 096 BPM Atrial Rate : 096 BPM P-R Int : 194 ms QRS Dur : 086 ms QT Int : 386 ms P-R-T Axes : 021 -31 118 degrees QTc Int : 487 ms Multifocal atrial tachycardia Left axis deviation T wave abnormality, consider lateral ischemia Prolonged QT Abnormal ECG Confirmed by KATHRINE STOLL ([id number]) on 06/23/2017 3:48:15 PM Referred By: VIN Confirmed By:KATHRINE STOLL
--- NOTE | 2017-06-23 20:40 | CT ---
CT BRAIN WITHOUT CONTRAST 06/23/17 HISTORY: Altered mental status and confusion. COMPARISON: CT brain from 2015. FINDINGS: No acute territorial infarct or hemorrhage. No midline shift or mass effect. Ventricular size and ext ra-axial CSF spaces are normal. Paranasal sinuses and mastoids are relatively clear. The visualized portions of the orbits are unremarkable. IMPRESSION: No acute intracranial abnormality. No significant change. POS: [facility]
[2017-06-23] MEDS: Famotidine 20 MG TAB PO SCH (21:24)
[2017-06-23] MEDS: Losartan 25 MG TAB PO SCH (21:25)
[2017-06-23] MEDS: Latanoprost 0.005% Ophth Soln 2.5 ml Bottle EA EYE SCH (21:25)
[2017-06-23] MEDS: Simvastatin 40 MG TAB PO SCH (21:26)
[2017-06-23] MEDS: Mirtazapine 15 MG TAB PO SCH (21:26)
[2017-06-24 05:38] LABS: Anion Gap 15 mmol/L (10-20); BUN (Urea Nitrogen) 22 mg/dL (9.8-20.1); Calc. Creatinine Clearance 7 mL/min (70-130); Carbon Dioxide 33 mmol/L (23-31); Chloride 94 mmol/L (98-107); Estimated GFR-MDRD 9; Glucose 98 mg/dL (83-110); Potassium 3.5 mmol/L (3.5-5.1); Sodium 138 mmol/L (136-145)
[2017-06-24 06:17] LABS: Hemoglobin 10.2 g/dL (12.0-16.0); Hypochromia SLIGHT = 6-15 cells (100X) (0-5/hpf); Lymphocytes 37 % (21-51); MDiff Complete? YES; Mean Corpuscular HGB CONC 31.7 g/dL (32.0-36.0); Mean Corpuscular Volume 82.2 fl (81.0-99.0); Mean Platelet Volume 8.9 fL (7.4-10.4); Monocytes 8 % (0-10); Neutrophil 49 % (42-75); Ovalocytes SLIGHT = 2-5 cells (100X) (0-1/hpf); PLT Morphology Comment Appears Adequate; Platelet Count 162 thou/uL (130-400); Polychromasia SLIGHT = 2-3 cells (100X) (0-2/hpf); RBC Distribution Width 18.7 % (11.5-14.5); Reactive Lymphocytes 6 % (0-10); Red Blood Cell (RBC) Count 3.94 mill/uL (4.20-5.40); Target Cells SLIGHT = 2-5 cells (100X) (0-1/hpf)
[2017-06-24] MEDS: Enoxaparin Sodium 30 MG/0.3 ML SYRINGE SC SCH (08:48)
[2017-06-24] MEDS: DASATINIB 20 MG PO SCH (08:48)
[2017-06-24] MEDS: hydrALAZINE 25 MG TAB PO SCH ×3 (08:49→21:13)
[2017-06-24] MEDS: Sevelamer Carbonate 800 MG TAB PO SCH ×3 (08:49→17:31)
[2017-06-24] MEDS: Allopurinol 300 MG TAB PO SCH (08:49)
[2017-06-24] MEDS: cloNIDine 0.1 MG TAB PO SCH ×3 (08:50→21:13)
[2017-06-24] MEDS: Megestrol Acetate 40 MG TAB PO SCH ×2 (10:00→21:15)
--- NOTE | 2017-06-24 13:41 | PDOC.PN ---
- Subjective Encounter Start Date: 06/24/17 Encounter Start Time: 11:00 Patient is seen today, alert and disoriented per Daughter at [facility], pt is sually very sharp, requesting neurology work up. - Objective MAR Reviewed: Yes Vital Signs & Weight: Vital Signs (12 hours) Temp Pulse Resp BP BP BP BP 06/24/17 12:00 98.2 F 96 18 146/68 H 06/24/17 10:53 140/74 06/24/17 08:49 82 140/74 06/24/17 08:00 98.3 F 82 20 140/74 06/24/17 03:28 98.1 F 85 15 158/70 H Pulse Ox 06/24/17 12:00 98 06/24/17 10:53 06/24/17 08:49 06/24/17 08:00 94 L 06/24/17 03:28 95 Weight Weight 127 lb 11.2 oz I&O: 06/23/17 06/24/17 06/25/17 06:59 06:59 06:59 Intake Total 360 360 Output Total 0 2200 Balance 360 -1840 Result Diagrams: 06/24/17 04:21 06/24/17 04:21 Additional Labs: Accuchecks 06/24/17 06/24/17 06/23/17 11:01 06:13 20:26 POC Glucose 125 H 99 218 H 06/23/17 16:25 POC Glucose 139 H Radiology Reviewed by me: Yes EKG Reviewed by me: Yes Phys Exam - Physical Examination HEENT: PERRLA, moist MMs Neck: no nodes, no JVD Respiratory: no wheezing, no rales Cardiovascular: RRR, no significant murmur Gastrointestinal: soft, non-tender Musculoskeletal: no edema, pulses present Neurological: non-focal, normal sensation Lymphatic: no nodes Psychiatric: normal affect, A&O x 3 Dx/Plan (1) Acute encephalopathy Code(s): G93.40 - ENCEPHALOPATHY, UNSPECIFIED Status: Acute Comment: CT head negative, No Weakness of extremities noted, will consult Neurology if any MRi need to be done. (2) PNA (pneumonia) Code(s): J18.9 - PNEUMONIA, UNSPECIFIED ORGANISM Status: Suspected Qualifiers: Pneumonia type: due to unspecified organism Laterality: left Lung location: lower lobe of lung Qualified Code(s): J18.1 - Lobar pneumonia, unspecified organism Comment: Chest xray showed bibasilar fluid but no infiltrate, will d/c Abx, Will continue to monitor. nebs prn. (3) Dyspnea Code(s): R06.00 - DYSPNEA, UNSPECIFIED Status: Acute Comment: stbale now, off of oxygen,. (4) Generalized weakness Code(s): R53.1 - WEAKNESS Status: Acute Comment: persistnat weakness from ESRD. may need evaluation for SNF, will do PT/OT evaluation. (5) Hypokalemia Code(s): E87.6 - HYPOKALEMIA Status: Acute Comment: resolved. (6) Troponin level elevated Code(s): R74.8 - ABNORMAL LEVELS OF OTHER SERUM ENZYMES Status: Acute Comment: Likley Chronic due to ESRD (7) Anemia in chronic kidney disease Code(s): N18.9 - CHRONIC KIDNEY DISEASE, UNSPECIFIED; D63.1 - ANEMIA IN CHRONIC KIDNEY DISEASE Status: Chronic Qualifiers: Chronic kidney disease stage: on chronic dialysis Qualified Code(s): N18.6 - End stage renal disease; D63.1 - Anemia in chronic kidney disease; D63.1 - Anemia in chronic kidney disease; Z99.2 - Dependence on renal dialysis; Z99.2 - Dependence on renal dialysis; Z99.2 - Dependence on renal dialysis; Z99.2 - Dependence on renal dialysis Comment: stbale, on Epocrit. (8) Diabetes mellitus type 2 in nonobese Code(s): E11.9 - TYPE 2 DIABETES MELLITUS WITHOUT COMPLICATIONS Status: Chronic Comment: Poorly controlled, Drop in BG further, will d/c GLimepride. Will need to keep on SSI. (9) ESRD (end stage renal disease) on dialysis Code(s): N18.6 - END STAGE RENAL DISEASE; Z99.2 - DEPENDENCE ON RENAL DIALYSIS Status: Chronic Comment: Continue Nephrology recommedations. (10) Pleural effusion Code(s): J90 - PLEURAL EFFUSION, NOT ELSEWHERE CLASSIFIED Status: Chronic Comment: Bilateral effsuiomn improving with Dialysis. - Plan * . - Discharge Day Encounter end time: 11:35 Review of Systems - Review of Systems Constitutional: negative: fever, chills, sweats, weakness, malaise, other Eyes: negative: Pain, Vision Change, Conjunctivae Inflammation, Eyelid Inflammation, Redness, Other ENT: negative: Ear Pain, Ear Discharge, Nose Pain, Nose Discharge, Nose Congestion, Mouth Pain, Mouth Swelling, Throat Pain, Throat Swelling, Other Respiratory: negative: Cough, Dry, Shortness of Breath, Hemoptysis, SOB with Excertion, Pleuritic Pain, Sputum, Wheezing Cardiovascular: negative: chest pain, palpitations, orthopnea, paroxysmal nocturnal dyspnea, edema, light headedness, other Gastrointestinal: negative: Nausea, Vomiting, Abdominal Pain, Diarrhea, Constipation, Melena, Hematochezia, Other Genitourinary: negative: Dysuria, Frequency, Incontinence, Hematuria, Retention , Other Musculoskeletal: negative: Neck Pain, Shoulder Pain, Arm Pain, Back Pain, Hand Pain, Leg Pain, Foot Pain, Other - Medications/Allergies Allergies/Adverse Reactions: Allergies Allergy/AdvReac Type Severity Reaction Status Date / Time tramadol Allergy Severe Verified 06/20/17 23:15 codeine Allergy Intermediate Hives Verified 06/20/17 23:15 aspirin Allergy Verified 06/20/17 23:15 morphine AdvReac Severe Emesis Verified 06/20/17 23:15 Medications: Current Medications Acetaminophen (Tylenol) 650 mg PO Q4H PRN PRN Reason: Headache/Fever or Pain Last Admin: 06/21/17 16:34 Dose: 650 mg Allopurinol (Zyloprim) 300 mg PO Q2D@0900 [facility] Last Admin: 06/24/17 08:49 Dose: 300 mg Cinacalcet (Sensipar) 30 mg PO MWF [facility] Last Admin: 06/23/17 12:05 Dose: 30 mg Clonidine (Catapres) 0.1 mg PO BID [facility] Last Admin: 06/24/17 10:53 Dose: Not Given Dextrose/Water (Dextrose 50%) 25 gm SLOW IVP PRN PRN PRN Reason: Hypoglycemia Enoxaparin Sodium (Lovenox) 30 mg SC 0900 [facility] Last Admin: 06/24/17 08:48 Dose: 30 mg Epoetin Liam (Procrit) 7,500 units SC Q7D@1000 [facility] Last Admin: 06/21/17 14:28 Dose: 7,500 units Famotidine (Pepcid) 20 mg PO QPM [facility] Last Admin: 06/23/17 21:24 Dose: 20 mg Glipizide (Glucotrol Xl) 2.5 mg PO QAM[facility] Glucagon (Glucagon) 1 mg IM PRN PRN PRN Reason: Hypoglycemia Guaifenesin/Dextromethorphan (Robitussin Dm) 15 ml PO Q4H PRN PRN Reason: Cough Hydralazine HCl (Apresoline) 25 mg PO TID [facility] Last Admin: 06/24/17 08:49 Dose: 25 mg Dextrose/Water (D5w) 1,000 mls @ 0 mls/hr IV .Q0M PRN; As Directed PRN Reason: Hypoglycemia Insulin Human Lispro (Humalog) 0 units SC .MILD SLIDING SCALE PRN PRN Reason: Mild Correctional Scale Last Admin: 06/21/17 17:31 Dose: 2 unit Isosorbide Mononitrate (Imdur) [facility] Last Admin: 06/24/17 08:54 Dose: 60 mg Latanoprost (Xalatan 0.005% Oph Soln) 1 drop EA EYE QPM [facility] Last Admin: 06/23/17 21:25 Dose: 1 drop Lidocaine/Prilocaine (Emla 2.5%) 0 gm TOP MWF [facility] Last Admin: 06/23/17 12:13 Dose: Not Given Losartan Potassium (Cozaar) 50 mg PO [facility] Last Admin: 06/23/17 21:25 Dose: 50 mg Megestrol Acetate (Megace) 200 mg PO BID [facility] Last Admin: 06/24/17 10:00 Dose: 200 mg Metoprolol Succinate (Toprol Xl) 25 mg PO BID [facility] Last Admin: 06/24/17 08:49 Dose: 25 mg Mirtazapine (Remeron) 15 mg PO [facility] Last Admin: 06/23/17 21:26 Dose: 15 mg (Dasatinib [Sprycel] (20 Mg)) 20 mg PO DAILY [facility] Last Admin: 06/24/17 08:48 Dose: 20 mg (Ferric Citrate [ (Auryxia] 210 Mg)) 210 mg PO DAILY [facility] Senna (Senokot) 2 tab PO HSPRN PRN PRN Reason: Constipation Sevelamer Carbonate (Renvela) 800 mg PO TID-[facility] Last Admin: 06/24/17 11:45 Dose: 800 mg Simvastatin (Zocor) 40 mg PO HS [facility] Last Admin: 06/23/17 21:26 Dose: 40 mg Sodium Chloride (Flush - Normal Saline) 10 ml IVF Q12HR [facility] Last Admin: 06/24/17 08:51 Dose: 10 ml Sodium Chloride (Flush - Normal Saline) 10 ml IVF PRN PRN PRN Reason: Saline Flush
--- NOTE | 2017-06-24 18:31 | CON ---
DATE OF CONSULTATION: 06/24/2017 CONSULTING PHYSICIAN: Hospitalist Service. IMPRESSION: 1. Transient encephalopathy secondary to infection. 2. Diabetes. 3. End-stage renal disease on dialysis. 4. Hypertension. 5. Chronic myelogenous leukemia. 6. Anemia. PLAN: Recall if further problems occur. HISTORY OF PRESENT ILLNESS: Ms. Contreras is an 81-year-old woman with multiple medical problems. She pr esented with complaints of chest pain last Wednesday. She was diagnosed with pneumonia and admitted to the hospital. She apparently had a bit of confusion in her appearance when she was initially admitte d. This has since cleared up and she is back to her baseline. She denies any recent history of marivel lar events. She denies any focal neurologic symptoms. She is not complaining of a headache, nausea, vomiting, vertigo, difficulty swallowing or clouding of thinking. PAST MEDICAL HISTORY: As listed above. ALLERGIES: ASPIRIN, CODEINE, MORPHINE, TRAMADOL. SOCIAL HISTORY: Negative for tobacco or alcohol use. FAMILY HISTORY: Noncontributory. REVIEW OF SYSTEMS: Otherwise, negative. PHYSICAL EXAMINATION: GENERAL: This is a thin elderly lady, sitting at the bedside, eating her supper. HEENT: Pupils are equal and reactive. Conjunctivae clear. Oropharynx is clear. NECK: No lymphadenopathy. EXTREMITIES: No cyanosis, clubbing or edema. NEUROLOGIC: She is alert and appropriate. Her speech is fluent and clear. Her exam is nonfocal. N o abnormal movements were seen. SUMMARY: This is an elderly lady with multiple medical problems who was admitted with pneumonia and apparently had some transient confusion. She feels like she is doing well at this point. There does not appear to be any evidence of encephalopathy at this time. Feel free to call if you have any fur ther problems.
[2017-06-24] MEDS: Famotidine 20 MG TAB PO SCH (21:13)
[2017-06-24] MEDS: Losartan 25 MG TAB PO SCH (21:14)
[2017-06-24] MEDS: Latanoprost 0.005% Ophth Soln 2.5 ml Bottle EA EYE SCH (21:14)
[2017-06-24] MEDS: Mirtazapine 15 MG TAB PO SCH (21:15)
[2017-06-24] MEDS: Simvastatin 40 MG TAB PO SCH (21:15)
--- NOTE | 2017-06-25 09:46 | PRG ---
DATE OF SERVICE: 06/25/2017 SUBJECTIVE: Ms. Contreras is an 81-year-old black female with ESRD and currently being dialyzed. I am at the bedside supervising her dialysis. She had a transient confusion. She was seen by the neurologi and the feeling is this may just be a transient encephalopathy secondary to an underlying infectio n. No other complaints today. No chest pain or shortness of breath. OBJECTIVE: VITAL SIGNS: Blood pressure is 136/71, heart rate 97, respiratory rate 16, temperature 98.4, pulse o x 93%. GENERAL: Awake, alert, comfortable, not in distress. SKIN: Adequate turgor. HEENT: Pinkish conjunctivae, anicteric sclerae. NECK: No neck mass, no carotid bruits, no JVD. LUNGS: Clear breath sounds. No wheezing, no crackles. HEART: Normal sinus rhythm. No murmur, no gallops, no rubs. ABDOMEN: Globular, soft, nontender, no masses. EXTREMITIES: No edema, no deformities. MEDICATIONS: Of 06/25/2017 reviewed. LABORATORY: Of 06/24/2017, white count 4, hemoglobin 10.2. Sodium on 06/24/2017, BUN 22, creatinine 5.6. ASSESSMENT AND PLAN: 1. End-stage renal disease, stable. Tolerating currently hemodialysis regimen. No heparin use, flu id removal only as tolerated. No changes in the dialysis bath. 2. Transient confusion - resolved - most likely metabolic etiology. Agree with current management.
[2017-06-25 13:15] VITALS: BP 142/63; TEMP 97.3
[2017-06-25] MEDS: Sevelamer Carbonate 800 MG TAB PO SCH ×2 (13:17)
[2017-06-25] MEDS: cloNIDine 0.1 MG TAB PO SCH (13:18)
[2017-06-25] MEDS: hydrALAZINE 25 MG TAB PO SCH (13:18)
[2017-06-25] MEDS: Cinacalcet HCl 30 MG TAB PO SCH (13:18)
[2017-06-25] MEDS: Megestrol Acetate 40 MG TAB PO SCH (13:19)
[2017-06-25] MEDS: DASATINIB 20 MG PO SCH (13:20)
[2017-06-25] MEDS: Enoxaparin Sodium 30 MG/0.3 ML SYRINGE SC SCH (13:20)
[2017-06-25] MEDS: Lidocaine-Prilocaine 2.5% Cream 5 GM TUBE TOP SCH (13:21)
--- NOTE | 2017-06-25 14:08 | DIS ---
DATE OF ADMISSION: 06/20/2017 DATE OF DISCHARGE: 06/25/2017 ADMITTING DIAGNOSIS: Acute metabolic encephalopathy. DISCHARGE DIAGNOSES: Acute metabolic encephalopathy. SECONDARY DIAGNOSES: 1. Acute left lower lobe infiltrate pneumonia. 2. End-stage renal disease, on hemodialysis. 3. Sinus tachycardia. 4. Hypertension. 5. Type 2 diabetes mellitus. CONSULTANTS INVOLVED IN THE CARE: Dr. Elizabeth. HISTORY OF PRESENT ILLNESS/HOSPITAL COURSE: In brief, this is an 81-year-old female with known history of end-stage renal disease on hemodialysis who presented to the hospital with lef t-sided chest pain associated with some shortness of breath. The pain was radiating to the back and was dull in intensity. Chest pain was on and off, and she had a chest x-ray in the ER showing an shukri dence of suspicious infiltrate in the left lower lobe, but also atelectasis could not be ruled out at that time. The patient was started on IV antibiotics with cefepime and levofloxacin. During the di alysis, she developed a sinus tachycardia which initially looked like atrial fibrillation. The patie nt was already on diltiazem and was closely monitored and was noted to have a sinus tachycardia. The patient was also on glimepiride 2 mg which dropped her blood sugars significantly, which did lead to tachycardia at that time. Following further reducing the dose to 1 mg, it had a persistent drop. T he patient's glimepiride was changed to glipizide, which has more of liver clearance. The patient di d fine with her sugars on glipizide and she had an episode of persistent altered mental status since admission, which has completely disappeared and also had Neurology see the patient. Dr. Kirkland ruled o ut any evidence of stroke. CT head was also done at that time was negative for stroke. The patient was discharged and had a home health arranged on the day of discharge. PHYSICAL EXAMINATION: VITAL SIGNS: Blood pressure is 124/56, heart rate is 87, respiration is 18, saturation 98% on room a ir. GENERAL: The patient is a moderately built, moderately nourished, does not appear in acute distress. CARDIOVASCULAR: S1, S2 normal. No murmurs, rubs or gallops. LUNGS: Bilateral air entry was equal. No wheezing, no crackles. ABDOMEN: Soft and nontender. No guarding, no rebound tenderness. Bowel sounds normal. MUSCULOSKELETAL: No calf tenderness. No pedal edema. No joint tenderness. No joint swelling. SKIN: No cyanosis, no erythema, no rash, no pallor. DISCHARGE MEDICATIONS: Metoprolol 50 mg p.o. daily, allopurinol 300 mg p.o. daily, clonidine 0.3 mg p.o. b.i.d., dasatinib 20 mg p.o. daily, ferric citrate, hydralazine 25 mg p.o. t.i.d., isosorbide di nitrate 60 mg p.o. in the morning, losartan 25 mg p.o. at bedtime, megestrol, mirtazapine, sevelamer 800 mg p.o. t.i.d., simvastatin 40 mg p.o. at bedtime. New medications are glipizide 2.5 mg p.o. in the morning. Advised to hold off on the glimepiride. S topped medications are glimepiride. DISCHARGE INSTRUCTIONS: Continue activity as tolerated. Advised to follow up with the primary care physician in one week and closely monitor her blood sugars. The patient developed hypoglycemia to or al sulfonylurea, which was glimepiride. Advised to follow up with hemodialysis schedule. Advised to return back to the ER if the patient develops any worsening shortness of breath or chest p I spent 35 minutes of this patient on the day of discharge.
== END 2017-06-25 15:00 | disposition home or self-care (01) | DRG 177 ==
LOC: ERS 12:25 → 2NO 18:27
PROVIDERS: ADMIT Internal Medicine; ATTEND Internal Medicine
PROC: 5A1D70Z Performance of Urinary Filtration, Intermittent, Less than 6 Hours Per Day (ICD-10-PCS; 2017-06-21)
PROC: 5A1D70Z Performance of Urinary Filtration, Intermittent, Less than 6 Hours Per Day (ICD-10-PCS; principal; 2017-06-23)
PROC: 5A1D70Z Performance of Urinary Filtration, Intermittent, Less than 6 Hours Per Day (ICD-10-PCS; 2017-06-25)
DX: J15.6 Pneumonia due to other Gram-negative bacteria (principal); G93.41 Metabolic encephalopathy; C92.10 Chronic myeloid leukemia, BCR/ABL-positive, not having achieved remission; E11.22 Type 2 diabetes mellitus with diabetic chronic kidney disease; J91.8 Pleural effusion in other conditions classified elsewhere; I48.91 Unspecified atrial fibrillation; I12.0 Hypertensive chronic kidney disease with stage 5 chronic kidney disease or end stage renal disease; N18.6 End stage renal disease; D63.1 Anemia in chronic kidney disease; E87.6 Hypokalemia; R74.8 Abnormal levels of other serum enzymes; Z86.711 Personal history of pulmonary embolism; Z66 Do not resuscitate; R00.0 Tachycardia, unspecified; Z99.2 Dependence on renal dialysis; T38.3X5A Adverse effect of insulin and oral hypoglycemic [antidiabetic] drugs, initial encounter; E11.649 Type 2 diabetes mellitus with hypoglycemia without coma
CPT/HCPCS: 36415; 36416; 70450; 71045; 71250; 80048; 80053; 82550; 82553; 83605; 84484; 85025; 87040; 87633; 90935; 93005; 93010; 93306; 94760; 96365; 96367; A4216; G0257; G8978-GP-CK; G8979-GP-CJ; J0692; J1650; J1956; J2543; J3370; J7050; Q4081; S0179

== ENCOUNTER 2017-08-04 21:18 | Emergency (ER) | payer MEDICARE, OTHER ==
--- NOTE | 2017-08-04 23:15 | RAD ---
AP PELVIS: 08/04/17 HISTORY: Bilateral hip pain. Comparison made with exam of 12/28/16. Femoral heads are unchanged in appearance and contour when compared to the prior study. No evidence o f acute fracture. Pelvis appears intact. Densely calcified aorta again noted. There are mild symmetric degenerative changes at both hips again noted. IMPRESSION: No acute fracture identified. POS: AGW
== END 2017-08-04 22:55 | disposition home or self-care (01) ==
LOC: ERS 21:18
DX: M16.0 Bilateral primary osteoarthritis of hip (principal); E11.22 Type 2 diabetes mellitus with diabetic chronic kidney disease; I12.0 Hypertensive chronic kidney disease with stage 5 chronic kidney disease or end stage renal disease; N18.6 End stage renal disease; Z79.899 Other long term (current) drug therapy
CPT/HCPCS: 72170

== ENCOUNTER 2017-08-11 16:18 | Inpatient (IN) | payer MEDICARE, OTHER ==
[2017-08-11] MEDS ORDERED: Dextrose 50% Abboject 50 ML SYRINGE ONE (17:34)
[2017-08-11] MEDS ORDERED: Dextrose 5% in Water 1,000 ML IV PRN (18:06)
[2017-08-11] MEDS ORDERED: HumaLOG 300 UNITS/3 ML VIAL SC PRN (18:06)
[2017-08-11] MEDS ORDERED: Ondansetron ODT 4 MG TAB PO PRN (18:06)
[2017-08-11] MEDS ORDERED: Acetaminophen 500 MG TAB PO PRN (18:06)
[2017-08-11] MEDS ORDERED: Dextrose 50% Abboject 50 ML SYRINGE SLOW IVP PRN (18:06)
[2017-08-11] MEDS ORDERED: Ondansetron HCl/PF 4 MG/2 ML Vial IVP PRN (18:06)
[2017-08-11] MEDS ORDERED: hydrALAZINE 20 MG/ML VIAL SLOW IVP PRN (18:06)
[2017-08-11 18:10] VITALS: BMI 23.8
--- NOTE | 2017-08-11 20:51 | PDOC.EVN ---
Event Note - Event Note Event Note: Pt noted on tele with A-fib RVR in 140's. Start Cardizem 20mg IV bolus x 1 then Cardizem 5mg/h IV gtt. Resume home Metoprolol 50mg daily.
[2017-08-11] MEDS ORDERED: Diltiazem 125 MG in Sodium Chloride 0.9% 100 ML IVPB SCH (21:00)
[2017-08-11] MEDS: methylPREDNISolone Sod Succ/PF 125 MG/2 ML VIAL IVP SCH (21:36)
[2017-08-11] MEDS: Mirtazapine 15 MG TAB PO SCH (21:45)
[2017-08-11] MEDS: Famotidine 20 MG TAB PO SCH (21:45)
[2017-08-11] MEDS: Atorvastatin Calcium 20 MG TAB PO SCH (21:45)
[2017-08-11] MEDS: cloNIDine 0.1 MG TAB PO PRN (22:29)
--- NOTE | 2017-08-11 22:29 | HP ---
DATE OF ADMISSION: 08/11/2017 PRIMARY CARE PHYSICIAN: Dr. Rickey Reyes. CHIEF COMPLAINT: Low blood sugar. HISTORY OF PRESENT ILLNESS: This is an 81-year-old -[place] female who presents to [facility] in transfer from the [facility] after initially being evaluated for hypoglycemia. Patient apparently was noted with some altered mentation, decreas ed level of consciousness and confusion at which point, patient's glucose was documented in the 29 ra nge. Patient apparently was scheduled for her regular maintenance hemodialysis approximately at 5:30 a.m. on 08/11/2017 but missed session this morning. [facility] and apparently was noted with hypoglycemic episodes during that admiss ion and taken off glimepiride. Patient was placed on glipizide 2.5 mg q.a.m. and states she has been compliant with this regimen. Patient denies any readings at home that were similar to the 20-30 ran ge that was documented at the [facility]. Patient denies any recent sick contact exposure, t rauma, injury, shortness of breath, cough, recent pneumonia, or change to her chronic medication john men. Patient denies any nausea, vomiting, or diarrhea. Patient apparently had transient altered men tation at this [facility] which since resolved with treatment to include 1-2 amps of D50. Prabha ent was transferred to the observation unit at [facility], at which point patient's initial glucose was documented in the 40s range. Patient received an additional amp of D50, was taken to the hemodialysis unit at [facility]. Patient currently denies any specific symptoms other than mild weakness. PAST MEDICAL HISTORY: 1. History of acute metabolic encephalopathy likely secondary to hypoglycemia. 2. Left lower lobe pneumonia 06/2017. 3. End-stage renal disease with hemodialysis. 4. Diabetes mellitus, type 2 treated with glipizide. 5. Hypertension. 6. Paroxysmal supraventricular tachycardia. 7. Dyslipidemia. 8. History of pulmonary embolus. 9. History of chronic myelogenous leukemia. 10. History of thoracic aneurysm. 11. Gastroesophageal reflux disease. PAST SURGICAL HISTORY: 1. Status post AV fistula placement. 2. Status post hysterectomy. CURRENT MEDICATIONS: 1. Xanax 0.5 mg p.r.n. 2. Cozaar 50 mg 1 tab p.o. daily. 3. Allopurinol 300 mg half a tab p.o. daily. 4. Clonidine 0.1 mg 1 tab p.o. b.i.d. 5. Sensipar 30 mg 1 tablet p.o. 3 times per week. 6. Dasatinib 20 mg 1 tab p.o. daily. 7. Sprycel 20 mg 1 tab p.o. daily. 8. Zocor 40 mg p.o. at bedtime. 9. Omeprazole 20 mg 1 tab p.o. daily. 10. Hydralazine 25 mg 1 tab p.o. t.i.d. 11. Renvela 800 mg 1 tab p.o. t.i.d. 12. Calcitriol 0.25 mcg p.o. daily. 13. Imdur 60 mg 1 tab p.o. daily. 14. Remeron 15 mg p.o. at bedtime. 15. Glipizide 2.5 mg p.o. daily. ALLERGIES: To TRAMADOL, CODEINE, ASPIRIN, and MORPHINE. FAMILY HISTORY: Positive for end-stage renal disease of her sister. SOCIAL HISTORY: Resides in [place], [place]. Retired. No current alcohol, tobacco, or illicit drug use . REVIEW OF SYSTEMS: The following complete review of systems was otherwise negative, except as stated per HPI: Constitutional: Weight loss or gain, ability to conduct usual activities. Skin: Rash, i tching. Eyes: Double vision, pain. ENT/Mouth: Nose bleeding, neck stiffness, pain, tenderness. C ardiovascular: Palpitations, dyspnea on exertion, orthopnea. Respiratory: Shortness of breath, whe ezing, cough, hemoptysis, fever, or night sweats. Gastrointestinal: Poor appetite, abdominal pain, heartburn, nausea, vomiting, constipation, or diarrhea. Genitourinary: Urgency, frequency, dysuria, nocturia. Musculoskeletal: Pain, swelling. Neurologic/Psychiatric: Anxiety, depression. Allergy /Immunologic: Skin rash, bleeding tendency. PHYSICAL EXAMINATION: VITAL SIGNS: Currently, blood pressure 180/65, pulse 81, respiratory rate 18, temperature 98.1 degre es Fahrenheit, O2 saturation 94% on room air. GENERAL APPEARANCE: This is an 81-year-old -Sudanese female, alert and oriented x3, pleasant, responsive, receiving hemodialysis currently. HEENT: Pupils are equal, round, and reactive to light and accommodation. Extraocular muscles are in tact. No scleral icterus, no conjunctival injection. Nares patent. OP is clear. Teeth in fair rep air. NECK: Supple. No cervical adenopathy, no thyromegaly, no carotid bruits, no JVD appreciated. Cervi devon spine with full active and passive range of motion. No meningeal signs appreciated. CHEST: Lungs are clear to auscultation bilaterally. CARDIOVASCULAR: S1, S2 with distant heart sounds. No murmur detected. ABDOMEN: Rounded. Soft, nontender, nondistended. Bowel sounds are positive in all four quadrants. There is no hepatosplenomegaly, no abdominal bruits, no rebound or guarding appreciated. EXTREMITIES: Left upper extremity with AV fistula in place. Bilateral lower extremities without shukri dence of clubbing, cyanosis, or asymmetric edema. Pulses palpable distally at the dorsalis pedis, po sterior tibial, and popliteal arteries bilaterally. Capillary refill less than 2 seconds. NEUROLOGIC: Cranial nerves II-XII are grossly intact. No focal or lateralizing signs appreciated. PERTINENT LABORATORY AND X-RAY FINDINGS: Sodium 138, potassium 3.6, chloride 96, CO2 of 27, BUN 43, creatinine 8.18, estimated GFR 5, glucose 31. Albumin 2.8, alkaline phosphatase 85. Total bilirubin 0.5, AST 23, ALT of 9. Troponin 0.07. Blood alcohol level less than 3. CBC showed a white blood c ell count of 6.5, hemoglobin 11.4, hematocrit 34, platelet count 217 with normal differential. EKG d ated 08/11/2017 by my interpretation shows sinus tachycardia with heart rates in the low 100s. Atten uated R waves noted in the precordial leads. Left axis deviation. No acute ST-T wave changes apprec iated. ASSESSMENT AND PLAN: 1. Acute hypoglycemia. Patient will be observed on the telemetry unit. We will continue D50 as nee ded to maintain stable glucose values. Add Solu-Medrol 80 mg IV x1 dose now. Avoid all hypoglycemic agents and insulin. Serial Accu-Cheks q.2 hours x3, then q.4 hours. Regular diet. 2. Acute metabolic encephalopathy secondarily to #1. Improved with glucose administration. We will continue serial monitoring as noted in #1. 3. End-stage renal disease with hemodialysis. We will continue maintenance hemodialysis currently. Nephrology consulted and we will follow during the hospital course. 4. Hypertension. Resume home antihypertensive regimen and monitor clinical response. 5. Diabetes mellitus, type 2. Currently, hypoglycemic as outlined in #1. Hold all diabetic medicat ions. Accu-Cheks q.2 hours x3, then q.4 hours. 6. Prophylaxis. Sequential compression devices while in bed. Pepcid 20 mg p.o. b.i.d. 7. Code status is FULL. Surrogate medical decision maker is Nava Cohen.
[2017-08-11] MEDS: hydrALAZINE 25 MG TAB PO SCH (22:38)
[2017-08-11] MEDS: Latanoprost 0.005% Ophth Soln 2.5 ml Bottle EA EYE SCH (22:38)
[2017-08-12] MEDS: cloNIDine 0.1 MG TAB PO PRN (02:30)
[2017-08-12 07:56] LABS: Hemoglobin 11.9 g/dL (12.0-16.0); Mean Corpuscular Hemoglobin 27.5 pg (27.0-31.0); Mean Corpuscular Volume 85.9 fl (81.0-99.0); Mean Platelet Volume 8.9 fL (7.4-10.4); Platelet Count 176 thou/uL (130-400); RBC Distribution Width 18.8 % (11.5-14.5); Red Blood Cell (RBC) Count 4.31 mill/uL (4.20-5.40); White Blood Cell (WBC) Count 4.8 thou/uL (4.8-10.8)
[2017-08-12 08:02] LABS: Anion Gap 16 mmol/L (10-20); BUN (Urea Nitrogen) 16 mg/dL (9.8-20.1); Calc. Creatinine Clearance 9 mL/min (70-130); Calcium 8.7 mg/dL (7.8-10.44); Carbon Dioxide 25 mmol/L (23-31); Chloride 96 mmol/L (98-107); Estimated GFR-MDRD 11; Glucose 194 mg/dL (83-110); Potassium 4.3 mmol/L (3.5-5.1); Sodium 133 mmol/L (136-145)
[2017-08-12 08:33] LABS: Lymphocytes 6 % (21-51); Monocytes 4 % (0-10)
[2017-08-12 08:34] LABS: Anisocytosis SLIGHT = 6-15 cells (100X) (0-5/hpf); Hypochromia SLIGHT = 6-15 cells (100X) (0-5/hpf)
[2017-08-12 08:35] LABS: Polychromasia SLIGHT = 2-3 cells (100X) (0-2/hpf); Target Cells SLIGHT = 2-5 cells (100X) (0-1/hpf)
[2017-08-12 08:36] LABS: MDiff Complete? YES; Neutrophil 90 % (42-75)
--- NOTE | 2017-08-12 09:22 | PRG ---
DATE OF SERVICE: 08/12/2017. SUBJECTIVE: Ms. Contreras is an 81-year-old black female with ESRD and admitted for hypoglycemia. We are being consulted for maintenance hemodialysis. She underwent hemodialysis yesterday without any diff iculty. Fluid was removed. This morning she voices no new complaints. She denies any chest pain or shortness of breath. PHYSICAL EXAMINATION: VITAL SIGNS: Blood pressure is 150/68, heart rate 80, respiratory rate 16, temperature is 98.2 with a pulse oximetry 91%. GENERAL: Noted to be awake, alert, comfortable, not in distress. SKIN: Adequate turgor. HEENT: She has pinkish conjunctivae, anicteric sclerae. NECK: No neck mass, no carotid bruits, no JVD. CHEST: No deformities. LUNGS: Clear breath sounds. No wheezing, no crackles. HEART: Normal sinus rhythm. No murmur, no gallops or rubs. ABDOMEN: Globular, soft, nontender, no masses. EXTREMITIES: No edema, no deformities. MEDICATIONS: 08/12/2017 - Reviewed. LABORATORY: 08/12/2017 - White count 4.8, hemoglobin 11.9. Sodium 133, potassium 4.3, chloride 96, carbon dioxide 25, BUN 16, creatinine 4.59, glucose 194, calcium 8.7. ASSESSMENT AND PLAN: 1. End-stage renal disease, stable. We will continue current Wednesday, Wednesday, Wednesday dialysis. Cecilia gill said treatment. Fluid removal only as tolerated. 2. Hypertension/tachycardia - currently on IV diltiazem drip. Blood pressure is much improved and h eart rate is within normal. Consider tapering of the diltiazem drip. 3. Hypoglycemia, resolved. I agree with current management.
[2017-08-12] MEDS: Famotidine 20 MG TAB PO SCH (09:30)
[2017-08-12] MEDS: Megestrol Acetate 40 MG TAB PO SCH (09:31)
[2017-08-12] MEDS: Sevelamer Carbonate 800 MG TAB PO SCH ×3 (09:31→17:49)
[2017-08-12] MEDS: hydrALAZINE 25 MG TAB PO SCH ×3 (09:31→20:07)
[2017-08-12] MEDS: HumaLOG 300 UNITS/3 ML VIAL SC PRN ×2 (09:52→12:00)
--- NOTE | 2017-08-12 11:39 | PDOC.PN ---
- Subjective Encounter Start Date: 08/12/17 Encounter Start Time: 11:36 Subjective: feels good - Objective Resuscitation Status: Resuscitation Status FULL:Full Resuscitation MAR Reviewed: Yes Vital Signs & Weight: Vital Signs (12 hours) Temp Pulse Resp BP BP Pulse Ox 08/12/17 11:32 98.3 F 76 20 112/54 L 94 L 08/12/17 09:00 69 155/70 H 08/12/17 08:00 98.2 F 80 16 138/63 08/12/17 07:22 98.2 F 80 16 150/68 H 91 L 08/12/17 06:00 83 127/60 08/12/17 05:12 76 112/57 L 08/12/17 03:00 82 124/58 L 08/12/17 02:30 86 187/77 H 08/12/17 00:00 94 177/74 H Weight Weight 130 lb I&O: 08/11/17 08/12/17 08/13/17 06:59 06:59 06:59 Intake Total 460 Balance 460 Result Diagrams: 08/12/17 03:30 08/12/17 06:30 Additional Labs: Accuchecks 08/12/17 08/12/17 08/12/17 07:57 05:59 02:40 POC Glucose 313 H 280 H 203 H 08/11/17 08/11/17 08/11/17 22:45 20:47 18:31 POC Glucose 67 L 96 98 08/11/17 08/11/17 17:34 16:41 POC Glucose 41 L* 52 L* Phys Exam - Physical Examination Neck: no JVD Respiratory: clear to auscultation bilateral Cardiovascular: no significant murmur, irregular Gastrointestinal: soft, non-tender, positive bowel sounds Musculoskeletal: no edema Dx/Plan (1) Hypoglycemia Code(s): E16.2 - HYPOGLYCEMIA, UNSPECIFIED Status: Acute (2) Atrial fibrillation with rapid ventricular response Code(s): I48.91 - UNSPECIFIED ATRIAL FIBRILLATION Status: Acute (3) Anemia in chronic kidney disease Code(s): N18.9 - CHRONIC KIDNEY DISEASE, UNSPECIFIED; D63.1 - ANEMIA IN CHRONIC KIDNEY DISEASE Status: Chronic Qualifiers: Comment: stbale, on Epocrit. (4) Diabetes mellitus type 2 in nonobese Code(s): E11.9 - TYPE 2 DIABETES MELLITUS WITHOUT COMPLICATIONS Status: Chronic Comment: Poorly controlled, Drop in BG further, will d/c GLimepride. Will need to keep on SSI. (5) ESRD (end stage renal disease) on dialysis Code(s): N18.6 - END STAGE RENAL DISEASE; Z99.2 - DEPENDENCE ON RENAL DIALYSIS Status: Chronic Comment: Continue Nephrology recommedations. (6) Hypertension Code(s): I10 - ESSENTIAL (PRIMARY) HYPERTENSION Status: Chronic Qualifiers: - Plan accu/ss/ hold oral hypoglycemic -: cont iv diltiazem -: cont metoprolol -: EKG now * .
--- NOTE | 2017-08-12 14:31 | PDOC.EVN ---
Event Note - Event Note Event Note: EKG- multifocal atrial tacchycardia. DC diltiazem, cont b-tari
[2017-08-12] MEDS ORDERED: methylPREDNISolone Sod Succ/PF 125 MG/2 ML VIAL IVP SCH (18:30)
[2017-08-12] MEDS: Latanoprost 0.005% Ophth Soln 2.5 ml Bottle EA EYE SCH (20:06)
[2017-08-12] MEDS: Atorvastatin Calcium 20 MG TAB PO SCH (20:07)
[2017-08-12] MEDS: methylPREDNISolone Sod Succ/PF 125 MG/2 ML VIAL IVP SCH (20:08)
[2017-08-12] MEDS: Mirtazapine 15 MG TAB PO SCH (20:08)
[2017-08-12] MEDS ORDERED: Simvastatin 40 MG TAB PO SCH (21:00)
[2017-08-13] MEDS: HumaLOG 300 UNITS/3 ML VIAL SC PRN ×2 (05:27→14:11)
--- NOTE | 2017-08-13 07:00 | EKG ---
Test Reason : Blood Pressure : / mmHG Vent. Rate : 080 BPM Atrial Rate : 080 BPM P-R Int : 236 ms QRS Dur : 082 ms QT Int : 440 ms P-R-T Axes : 019 -22 028 degrees QTc Int : 507 ms Sinus rhythm with 1st degree A-V block with Premature supraventricular complexes Nonspecific T wave abnormality ST segment and T wave changes may suggest high lateral ischemia. Prolonged QT Abnormal ECG When compared with ECG of 11-AUG-2017 20:16, (Unconfirmed) Significant changes have occurred Confirmed by DODIE DURHAM ([id number]) on 08/13/2017 6:59:56 AM Referred By: NEEMA Confirmed By:DODIE DURHAM
--- NOTE | 2017-08-13 07:10 | EKG ---
Test Reason : Blood Pressure : / mmHG Vent. Rate : 142 BPM Atrial Rate : 142 BPM P-R Int : 000 ms QRS Dur : 084 ms QT Int : 324 ms P-R-T Axes : -13 -66 121 degrees QTc Int : 498 ms Supraventricular tachycardia(Probable Atrial flutter with 2:1 block with also Sinus tachycardia Left axis deviation Abnormal ECG Confirmed by DODIE DURHAM ([id number]) on 08/13/2017 7:10:16 AM Referred By: Confirmed By:DODIE DURHAM
--- NOTE | 2017-08-13 07:11 | EKG ---
Test Reason : Blood Pressure : / mmHG Vent. Rate : 134 BPM Atrial Rate : 293 BPM P-R Int : 000 ms QRS Dur : 086 ms QT Int : 362 ms P-R-T Axes : 023 -60 083 degrees QTc Int : 540 ms Atrial flutter Fib with variable A-V block Left axis deviation Abnormal ECG Confirmed by DODIE DURHAM ([id number]) on 08/13/2017 7:10:56 AM Referred By: Confirmed By:DODIE DURHAM
[2017-08-13] MEDS ORDERED: Allopurinol 300 MG TAB PO SCH (09:00)
[2017-08-13] MEDS ORDERED: Calcitriol 0.25 MCG CAP PO SCH (09:00)
[2017-08-13] MEDS ORDERED: Famotidine 20 MG TAB PO SCH (09:00)
[2017-08-13] MEDS: Sevelamer Carbonate 800 MG TAB PO SCH ×2 (10:48→11:08)
[2017-08-13] MEDS: Megestrol Acetate 40 MG TAB PO SCH (11:08)
[2017-08-13] MEDS: hydrALAZINE 25 MG TAB PO SCH ×2 (11:08→14:11)
[2017-08-13 12:03] VITALS: BP 188/85; TEMP 98.1
--- NOTE | 2017-08-13 14:49 | DIS ---
DATE OF ADMISSION: 08/11/2017 DATE OF DISCHARGE: 08/13/2017 PRIMARY CARE PROVIDER: Dr. Rickey Reyes. FINAL DIAGNOSES: Severe hypoglycemia, resolved; diabetes mellitus type 2; wandering atrial pacemaker ; end-stage renal disease, requiring hemodialysis; gout; gastroesophageal reflux disease; chronic mye locytic leukemia. DISCHARGE MEDICATIONS: Omeprazole 20 mg a day, Remeron 15 mg a day, Rocaltrol 0.25 mg p.o. daily, Zo cor 40 mg a day, Sprycel 20 mg a day, losartan 50 mg a day, hydralazine 25 mg 3 times a day, Renvela 800 mg 3 times a day, Imdur 60 mg a day, allopurinol 150 mg a day. ALLERGIES: TRAMADOL, CODEINE, ASPIRIN, MORPHINE. PENDING AT THE TIME OF DISCHARGE: Nothing. CODE STATUS: FULL. [facility]: [facility] after presenting with protracted hypoglycemia, had some altered mental status, de creased level of consciousness, blood sugar documented at 29. She was treated with D50. Discontinua tion of her oral hypoglycemic agents. She had an episode of supraventricular tachycardia versus mult ifocal atrial tachycardia, for which she was briefly put on diltiazem. This was stopped; her metopro lol was started. She has had a wandering atrial pacemaker since that time. She has had a couple of episodes of supraventricular tachycardia, which have been asymptomatic and transient, and that episod e was right after hemodialysis today. She is currently alert, oriented, and desirous [facility]. Her current laboratory, blood sugars running 149, 149, 204, and 245. Her chemistries, creatin ine was 4.59, BUN 16, sodium 133, potassium 4.3. CBC was unremarkable except for minimally decreased hemoglobin of 11.9. She is an alert, cooperative. Blood pressure is stable. Cardiorespiratory exa m is normal. She is very desirous of going home. She is being discharged. No consultations except with Dr. Parveen Elizabeth, her routine physician neonatology, and the only procedure being hemodialysis today marco ziegler. She has been asked to follow up with Dr. Reyes in 1 week, to follow up with Dr. Elizabeth and james mccarthy her routine hemodialysis.
== END 2017-08-13 16:14 | disposition home or self-care (01) | DRG 637 ==
LOC: 2SW 16:18 → OBSVTOIN 08-12 10:36 → 2NO 08-12 12:39
PROVIDERS: ADMIT Internal Medicine Infectious Disease; ATTEND Internal Medicine Infectious Disease
PROC: 5A1D70Z Performance of Urinary Filtration, Intermittent, Less than 6 Hours Per Day (ICD-10-PCS; principal; 2017-08-09)
DX: E11.649 Type 2 diabetes mellitus with hypoglycemia without coma (principal); G93.41 Metabolic encephalopathy; C93.10 Chronic myelomonocytic leukemia not having achieved remission; E11.22 Type 2 diabetes mellitus with diabetic chronic kidney disease; I12.0 Hypertensive chronic kidney disease with stage 5 chronic kidney disease or end stage renal disease; I97.89 Other postprocedural complications and disorders of the circulatory system, not elsewhere classified; N18.6 End stage renal disease; Z99.2 Dependence on renal dialysis; K21.9 Gastro-esophageal reflux disease without esophagitis; E78.5 Hyperlipidemia, unspecified; Z86.711 Personal history of pulmonary embolism; M10.9 Gout, unspecified; I49.8 Other specified cardiac arrhythmias; Y83.8 Other surgical procedures as the cause of abnormal reaction of the patient, or of later complication, without mention of misadventure at the time of the procedure; D63.1 Anemia in chronic kidney disease
CPT/HCPCS: 36416; 80048; 85007; 85027; 90935; 93005; 93010; G0257; J2930; J7050; S0179

== ENCOUNTER 2017-08-30 13:34 | Outpatient (CLI) | payer MEDICARE, OTHER | END 2017-08-30 13:35 | disposition home or self-care (01) | LOC: BICMRI 13:34 | PROVIDERS: ATTEND Internal Medicine | DX: M47.26 Other spondylosis with radiculopathy, lumbar region (principal); M51.16 Intervertebral disc disorders with radiculopathy, lumbar region; M25.78 Osteophyte, vertebrae; M48.061 Spinal stenosis, lumbar region without neurogenic claudication; M99.83 Other biomechanical lesions of lumbar region | CPT/HCPCS: 72148 ==